=== PATIENT | male | born 1960 | race Caucasian/White ===

== ENCOUNTER 2019-01-04 04:59 | Inpatient (IN) | payer OTHER ==
[~2019-01-04] VITALS: Ht 124.5 cm; Wt 60.5 kg
[~2019-01-04 04:59] MED LIST: BP MEDS
[2019-01-04] MEDS ORDERED: LOSA50TA64 PO (05:16)
[2019-01-04] MEDS ORDERED: ASPI-1182 PO (05:16)
[2019-01-04] MEDS ORDERED: MELO-107 PO (05:16)
[2019-01-04 05:29] LABS: BASOPHILS % (AUTO) 0.6 % (0.0-2.0); EOSINOPHILS % (AUTO) 0.5 % (1.0-6.0); HEMATOCRIT 38.5 % (41-53); HEMOGLOBIN 12.6 g/dL (13.5-17.5); LYMPHOCYTES # (AUTO) 1.3 K/uL (1.0-4.8); LYMPHOCYTES % (AUTO) 9.7 % (22.0-44.0); MEAN CORPUSCULAR HEMOGLOBIN 31.7 pg (26.0-34.0); MEAN CORPUSCULAR HGB CONC 32.7 G/dL (31.0-37.0); MEAN CORPUSCULAR VOLUME 97 fL (80-100); MONOCYTES % (AUTO) 7.5 % (2.0-9.0); NEUTROPHILS # (AUTO) 10.7 K/uL (1.8-7.7); NEUTROPHILS % (AUTO) 81.7 % (40.0-70.0); PLATELET COUNT (AUTO) 274 K/uL (150-450); RED BLOOD CELL COUNT(AUTO) 3.97 MIL/uL (4.50-5.90); RED CELL DISTRIBUTION WIDTH 17.2 % (11.5-14.5)
[2019-01-04] MEDS ORDERED: ASPIRIN 81 MG CHEWABLE TABLET PO ONE (05:30)
[2019-01-04] MEDS ORDERED: NITROGLYCERIN 2% (1 GM=INCH) PACKET TP ONE (05:30)
[2019-01-04 05:39] LABS: ANION GAP 12 mmol/L (8-16); CALCIUM, TOTAL 9.5 mg/dL (8.8-10.5); CARBON DIOXIDE 27 mmol/L (22-29); CHLORIDE 97 mmol/L (98-107); CREATININE 0.47 mg/dL (0.60-1.30); GLOMERULAR FILTR. RATE CALC > 60 mL/min (>60); GLUCOSE,RANDOM 143 mg/dL (70-110); POTASSIUM 5.1 mmol/L (3.5-5.1); SODIUM SERUM 136 mmol/L (136-145); UREA NITROGEN, BLOOD 21 mg/dL (7-18)
[2019-01-04 05:45] LABS: ALANINE AMINOTRANSFERASE 29 U/L (12-78); ALBUMIN 3.6 g/dL (3.4-5.0); ALKALINE PHOSPHATASE 81 U/L (46-116); ASPARTATE AMINOTRANSFERASE 41 U/L (15-37); BILIRUBIN,TOTAL 0.5 mg/dL (0.1-1.0); LIPASE 197 U/L (73-393)
[2019-01-04] MEDS ORDERED: ACETAMINOPHEN 325 MG TABLET PO ONE (05:45)
[2019-01-04 05:52] LABS: B-TYPE NATRIURETIC PEPTIDE 44 pg/mL (0-100)
[2019-01-04] MEDS ORDERED: SODIUM CHLORIDE 0.9% 1,000 ML IV ONE ×3 (06:00→11:00)
[2019-01-04] MEDS ORDERED: MORPHINE SULFATE 4 MG/ML SYRINGE IVP ONE ×2 (06:15→08:00)
[2019-01-04] MEDS ORDERED: SODIUM CHLORIDE 0.9% 100 ML ONE (06:19)
[2019-01-04] MEDS ORDERED: IOVERSOL 350 MG/ML 100 ML VIAL ONE (06:19)
[2019-01-04] MEDS ORDERED: CefTRIAXone 1 GM/DEXTROSE 50 ML IV ONE (07:30)
[2019-01-04 07:35] LABS: APPEARANCE,URINE CLOUDY (CLEAR); BILIRUBIN,URINE NEGATIVE (NEGATIVE); GLUCOSE, URINE (UA) NEGATIVE (NEGATIVE); KETONES,URINE >=80 mg/dL (NEGATIVE); LEUKOCYTE ESTERASE ,URINE LARGE (NEGATIVE); NITRATE,URINE POSITIVE (NEGATIVE); OCCULT BLOOD,URINE LARGE (NEGATIVE); PH,URINE 5.5 (5.0-8.0); PROTEIN,URINE TRACE (NEGATIVE); UROBILINOGEN,URINE 0.2 mg/dL (<=1.0)
[2019-01-04] MEDS ORDERED: LOSARTAN POTASSIUM 50 MG TABLET PO ONE (08:00)
[2019-01-04] MEDS ORDERED: CIPROFLOXACIN 400 MG/D5% WATER 200 ML IV ONE (08:00)
[2019-01-04] MEDS ORDERED: MetroNIDAZOLE 500 MG/NACL 100 ML IV ONE (08:00)
[2019-01-04 08:06] LABS: BACTERIA,URINE Moderate /HPF (None Seen); SQUAMOUS EPITHELIAL CELL,UR Few /LPF (None Seen); WBC,URINE 26-50 /HPF (0-5)
[2019-01-04] MEDS ORDERED: MORPHINE SULFATE 4 MG/ML SYRINGE IVP PRN (08:15)
[2019-01-04] MEDS ORDERED: 0.9% SODIUM CHLORIDE 10 ML SYRINGE IVP PRN (08:15)
[2019-01-04] MEDS ORDERED: ACETAMINOPHEN 325 MG TABLET PO PRN (08:15)
[2019-01-04] MEDS ORDERED: ONDANSETRON HCL 4 MG/2 ML VIAL IVP PRN ×2 (08:15→11:00)
[2019-01-04 08:19] LABS: INFLUENZA TYPE A NEGATIVE FOR TYPE A (NEGATIVE); INFLUENZA TYPE B NEGATIVE FOR TYPE B (NEGATIVE)
[2019-01-04] MEDS ORDERED: CloNIDine HCL 0.1 MG TABLET PO PRN (11:00)
[2019-01-04] MEDS: MetroNIDAZOLE 500 MG/NACL 100 ML IV SCH ×2 (11:05→21:39)
[2019-01-04] MEDS: CIPROFLOXACIN 400 MG/D5% WATER 200 ML IV SCH ×2 (11:06→23:52)
[2019-01-04 12:52] VITALS: BP 186/117
[2019-01-04] MEDS: MORPHINE SULFATE 2 MG/ML SYRINGE IVP PRN (13:10)
[2019-01-04 15:55] VITALS: BP 168/92
[2019-01-04] MEDS: HEPARIN SODIUM,PORCINE 5,000 UNITS/ML VIAL SQ SCH ×2 (16:57→23:52)
[2019-01-04] MEDS ORDERED: PNEUMOCOCCAL VACCINE POLYVALENT 0.5 ML VIAL [PPSV23] IM ONE (18:45)
[2019-01-04 19:55] VITALS: BP 154/88
[2019-01-04] MEDS: DOCUSATE SODIUM 100 MG CAPSULE PO SCH (20:05)
[2019-01-04] MEDS: ACETAMINOPHEN 325 MG TABLET PO PRN (20:05)
[2019-01-04 23:23] VITALS: BP 122/70
[2019-01-05] MEDS ORDERED: SODIUM CHLORIDE 0.9% 500 ML IV ONE (00:28)
[2019-01-05] MEDS: MORPHINE SULFATE 2 MG/ML SYRINGE IVP PRN ×3 (04:13→21:42)
[2019-01-05] MEDS: MetroNIDAZOLE 500 MG/NACL 100 ML IV SCH ×3 (04:14→20:00)
[2019-01-05 04:37] VITALS: BP 129/80
[2019-01-05 06:01] LABS: BASOPHILS % (AUTO) 0.2 % (0.0-2.0); EOSINOPHILS % (AUTO) 0 % (1.0-6.0); HEMATOCRIT 33.1 % (41-53); HEMOGLOBIN 10.8 g/dL (13.5-17.5); LYMPHOCYTES # (AUTO) 0.3 K/uL (1.0-4.8); LYMPHOCYTES % (AUTO) 2.2 % (22.0-44.0); MEAN CORPUSCULAR HEMOGLOBIN 31.3 pg (26.0-34.0); MEAN CORPUSCULAR HGB CONC 32.6 G/dL (31.0-37.0); MEAN CORPUSCULAR VOLUME 96 fL (80-100); MONOCYTES # (AUTO) 0.7 K/uL (0.1-1.0); MONOCYTES % (AUTO) 5.5 % (2.0-9.0); NEUTROPHILS # (AUTO) 12.5 K/uL (1.8-7.7); PLATELET COUNT (AUTO) 178 K/uL (150-450); RED BLOOD CELL COUNT(AUTO) 3.45 MIL/uL (4.50-5.90); RED CELL DISTRIBUTION WIDTH 17.4 % (11.5-14.5)
[2019-01-05 06:09] LABS: NEUTROPHILS % (AUTO) 92.1 % (40.0-70.0)
[2019-01-05 06:17] LABS: ALANINE AMINOTRANSFERASE 162 U/L (12-78); ALBUMIN 2.6 g/dL (3.4-5.0); ALKALINE PHOSPHATASE 149 U/L (46-116); ANION GAP 11 mmol/L (8-16); ASPARTATE AMINOTRANSFERASE 134 U/L (15-37); BILIRUBIN,TOTAL 0.4 mg/dL (0.1-1.0); CARBON DIOXIDE 26 mmol/L (22-29); CHLORIDE 100 mmol/L (98-107); CREATININE 0.47 mg/dL (0.60-1.30); GLOMERULAR FILTR. RATE CALC > 60 mL/min (>60); GLUCOSE,RANDOM 118 mg/dL (70-110); POTASSIUM 3.1 mmol/L (3.5-5.1); SODIUM SERUM 137 mmol/L (136-145); TOTAL PROTEIN, SERUM 6.8 g/dL (6.4-8.2); UREA NITROGEN, BLOOD 14 mg/dL (7-18)
[2019-01-05 07:35] VITALS: BP 125/78
[2019-01-05] MEDS: POTASSIUM CHL 10 MEQ/WATER 50 ML IV PRN ×3 (08:43→16:52)
[2019-01-05] MEDS: HEPARIN SODIUM,PORCINE 5,000 UNITS/ML VIAL SQ SCH ×2 (08:44→16:52)
[2019-01-05] MEDS: DEXTROSE 5%-0.45% SODIUM CHL 1,000 ML IV SCH (08:44)
[2019-01-05] MEDS: ASPIRIN 81 MG EC TABLET PO SCH (08:44)
[2019-01-05] MEDS: LOSARTAN POTASSIUM 50 MG TABLET PO SCH (08:44)
[2019-01-05] MEDS: PANTOPRAZOLE SODIUM 40 MG DR TABLET PO SCH (08:44)
[2019-01-05] MEDS: DOCUSATE SODIUM 100 MG CAPSULE PO SCH ×2 (08:45→20:00)
[2019-01-05] MEDS: CIPROFLOXACIN 400 MG/D5% WATER 200 ML IV SCH (11:02)
[2019-01-05] MEDS: ACETAMINOPHEN 325 MG TABLET PO PRN (11:16)
[2019-01-05 11:25] VITALS: BP 116/78
[2019-01-05] MEDS: CefTRIAXone 1 GM/DEXTROSE 50 ML IV SCH (13:04)
[2019-01-05 15:20] VITALS: BP 120/59
[2019-01-05 20:06] VITALS: BP 120/69
[2019-01-05 23:24] VITALS: BP 104/59
[2019-01-06] MEDS: HEPARIN SODIUM,PORCINE 5,000 UNITS/ML VIAL SQ SCH ×4 (00:04→23:24)
[2019-01-06] MEDS: CIPROFLOXACIN 400 MG/D5% WATER 200 ML IV SCH ×3 (00:04→23:24)
[2019-01-06] MEDS: DEXTROSE 5%-0.45% SODIUM CHL 1,000 ML IV SCH ×2 (00:05→15:54)
[2019-01-06] MEDS: POTASSIUM CHLORIDE 20 MEQ ER TABLET PO PRN (02:55)
[2019-01-06] MEDS: MetroNIDAZOLE 500 MG/NACL 100 ML IV SCH ×3 (04:02→20:22)
[2019-01-06 04:33] VITALS: BP 101/64
[2019-01-06 07:44] VITALS: BP 108/64
[2019-01-06] MEDS: LOSARTAN POTASSIUM 50 MG TABLET PO SCH (08:47)
[2019-01-06] MEDS: DOCUSATE SODIUM 100 MG CAPSULE PO SCH ×2 (08:47→20:22)
[2019-01-06] MEDS: PANTOPRAZOLE SODIUM 40 MG DR TABLET PO SCH (08:47)
[2019-01-06] MEDS: ASPIRIN 81 MG EC TABLET PO SCH (08:47)
[2019-01-06] MEDS ORDERED: SODIUM CHLORIDE 0.9% 100 ML ONE (11:08)
[2019-01-06] MEDS: HYDROCODONE/ACETAMINOPHEN 5-325 MG TABLET PO PRN (11:28)
[2019-01-06 12:28] VITALS: BP 106/51
[2019-01-06] MEDS: CefTRIAXone 1 GM/DEXTROSE 50 ML IV SCH (12:33)
[2019-01-06 15:49] VITALS: BP 107/72
[2019-01-06 19:51] VITALS: BP 115/74
[2019-01-06] MEDS: MORPHINE SULFATE 2 MG/ML SYRINGE IVP PRN (21:29)
[2019-01-06 23:36] VITALS: BP 132/75
[2019-01-07] MEDS: MetroNIDAZOLE 500 MG/NACL 100 ML IV SCH ×2 (04:10→13:01)
[2019-01-07] MEDS: DEXTROSE 5%-0.45% SODIUM CHL 1,000 ML IV SCH ×2 (04:18→16:20)
[2019-01-07 04:25] VITALS: BP 124/76
[2019-01-07 06:11] LABS: BASOPHILS % (AUTO) 0.2 % (0.0-2.0); EOSINOPHILS % (AUTO) 1.3 % (1.0-6.0); HEMATOCRIT 31.4 % (41-53); HEMOGLOBIN 10.4 g/dL (13.5-17.5); LYMPHOCYTES # (AUTO) 0.7 K/uL (1.0-4.8); LYMPHOCYTES % (AUTO) 7.8 % (22.0-44.0); MEAN CORPUSCULAR HGB CONC 33.2 G/dL (31.0-37.0); MEAN CORPUSCULAR VOLUME 96 fL (80-100); MONOCYTES % (AUTO) 11.5 % (2.0-9.0); NEUTROPHILS # (AUTO) 6.7 K/uL (1.8-7.7); NEUTROPHILS % (AUTO) 79.2 % (40.0-70.0); PLATELET COUNT (AUTO) 162 K/uL (150-450); RED BLOOD CELL COUNT(AUTO) 3.26 MIL/uL (4.50-5.90); RED CELL DISTRIBUTION WIDTH 17.7 % (11.5-14.5)
[2019-01-07 06:31] LABS: ANION GAP 7 mmol/L (8-16); CALCIUM, TOTAL 7.3 mg/dL (8.8-10.5); CARBON DIOXIDE 28 mmol/L (22-29); CHLORIDE 102 mmol/L (98-107); CREATININE 0.47 mg/dL (0.60-1.30); GLOMERULAR FILTR. RATE CALC > 60 mL/min (>60); GLUCOSE,RANDOM 169 mg/dL (70-110); POTASSIUM 3.4 mmol/L (3.5-5.1); SODIUM SERUM 137 mmol/L (136-145); UREA NITROGEN, BLOOD 11 mg/dL (7-18)
[2019-01-07] MEDS: POTASSIUM CHLORIDE 20 MEQ ER TABLET PO PRN (07:01)
[2019-01-07 08:19] VITALS: BP 137/85
[2019-01-07] MEDS: MORPHINE SULFATE 2 MG/ML SYRINGE IVP PRN ×3 (08:44→21:47)
[2019-01-07] MEDS: MAGNESIUM HYDROXIDE SUSPENSION 30 ML UDCUP PO PRN (08:47)
[2019-01-07] MEDS: ASPIRIN 81 MG EC TABLET PO SCH (08:48)
[2019-01-07] MEDS: PANTOPRAZOLE SODIUM 40 MG DR TABLET PO SCH (08:48)
[2019-01-07] MEDS: HEPARIN SODIUM,PORCINE 5,000 UNITS/ML VIAL SQ SCH ×3 (08:48→23:43)
[2019-01-07] MEDS: DOCUSATE SODIUM 100 MG CAPSULE PO SCH ×2 (08:48→20:59)
[2019-01-07] MEDS: LOSARTAN POTASSIUM 50 MG TABLET PO SCH (08:48)
[2019-01-07] MEDS: CIPROFLOXACIN 400 MG/D5% WATER 200 ML IV SCH ×2 (11:12→23:43)
[2019-01-07 12:34] VITALS: BP 122/65
[2019-01-07] MEDS: CefTRIAXone 1 GM/DEXTROSE 50 ML IV SCH (13:01)
[2019-01-07] MEDS ORDERED: LORATADINE 10 MG TABLET PO SCH (14:00)
[2019-01-07 16:27] VITALS: BP 110/68
[2019-01-07 20:04] VITALS: BP 149/90
[2019-01-08 00:27] VITALS: BP 137/82
[2019-01-08 04:11] VITALS: BP 123/75
[2019-01-08] MEDS: DEXTROSE 5%-0.45% SODIUM CHL 1,000 ML IV SCH ×2 (06:43→20:59)
[2019-01-08 07:54] VITALS: BP 130/81
[2019-01-08] MEDS ORDERED: GADOBUTROL 1 MMOL/ML 10 ML VIAL IVP ONE (08:46)
[2019-01-08] MEDS: ASPIRIN 81 MG EC TABLET PO SCH (09:42)
[2019-01-08] MEDS: PANTOPRAZOLE SODIUM 40 MG DR TABLET PO SCH (09:42)
[2019-01-08] MEDS: DOCUSATE SODIUM 100 MG CAPSULE PO SCH ×2 (09:42→20:59)
[2019-01-08] MEDS: LOSARTAN POTASSIUM 50 MG TABLET PO SCH (09:43)
[2019-01-08] MEDS: HEPARIN SODIUM,PORCINE 5,000 UNITS/ML VIAL SQ SCH ×3 (09:43→23:41)
[2019-01-08] MEDS: MAGNESIUM HYDROXIDE SUSPENSION 30 ML UDCUP PO PRN (10:05)
[2019-01-08] MEDS: BISACODYL 10 MG RECTAL RECTAL SUPPOSITORY PR PRN (10:05)
[2019-01-08 11:49] VITALS: BP 137/71
[2019-01-08] MEDS: CIPROFLOXACIN 400 MG/D5% WATER 200 ML IV SCH ×2 (11:51→23:41)
[2019-01-08 20:15] VITALS: BP 159/94
[2019-01-09] VITALS (7 sets, daily range): BP systolic 123–159; BP diastolic 78–89
[2019-01-09] MEDS: MORPHINE SULFATE 2 MG/ML SYRINGE IVP PRN (01:09)
[2019-01-09] MEDS: HEPARIN SODIUM,PORCINE 5,000 UNITS/ML VIAL SQ SCH ×3 (09:13→21:15)
[2019-01-09] MEDS: PANTOPRAZOLE SODIUM 40 MG DR TABLET PO SCH (09:13)
[2019-01-09] MEDS: DOCUSATE SODIUM 100 MG CAPSULE PO SCH ×2 (09:13→21:15)
[2019-01-09] MEDS: ASPIRIN 81 MG EC TABLET PO SCH (09:13)
[2019-01-09] MEDS: LOSARTAN POTASSIUM 50 MG TABLET PO SCH (09:13)
[2019-01-09] MEDS: CIPROFLOXACIN 400 MG/D5% WATER 200 ML IV SCH (10:06)
[2019-01-09 13:22] LABS: C-REACTIVE PROTEIN QUANT 7.82 mg/dL (0.00-0.30)
[2019-01-09] MEDS: DEXTROSE 5%-0.45% SODIUM CHL 1,000 ML IV SCH (13:43)
[2019-01-09] MEDS ORDERED: CefTRIAXone SODIUM 2 GM in DEXTROSE 5%-WATER 50 ML IV SCH (14:00)
[2019-01-09] MEDS: DiphenhydrAMINE HCL 25 MG CAPSULE PO PRN (22:44)
[2019-01-10] MEDS: MORPHINE SULFATE 2 MG/ML SYRINGE IVP PRN ×2 (00:33→22:53)
[2019-01-10] MEDS: DEXTROSE 5%-0.45% SODIUM CHL 1,000 ML IV SCH ×2 (01:16→15:40)
[2019-01-10] MEDS: AZTREONAM 2 GM in DEXTROSE 5%-WATER 50 ML IV SCH ×3 (01:16→18:02)
[2019-01-10 04:31] VITALS: BP 133/98
[2019-01-10 07:33] VITALS: BP 130/77
[2019-01-10] MEDS: HEPARIN SODIUM,PORCINE 5,000 UNITS/ML VIAL SQ SCH ×3 (08:00→21:33)
[2019-01-10] MEDS: PANTOPRAZOLE SODIUM 40 MG DR TABLET PO SCH (09:05)
[2019-01-10] MEDS: LOSARTAN POTASSIUM 50 MG TABLET PO SCH (09:05)
[2019-01-10] MEDS: ASPIRIN 81 MG EC TABLET PO SCH (09:05)
[2019-01-10] MEDS: DOCUSATE SODIUM 100 MG CAPSULE PO SCH ×2 (09:05→21:33)
[2019-01-10 10:09] LABS: BASOPHILS % (AUTO) 0.5 % (0.0-2.0); EOSINOPHILS % (AUTO) 3.7 % (1.0-6.0); HEMATOCRIT 36.4 % (41-53); HEMOGLOBIN 11.7 g/dL (13.5-17.5); LYMPHOCYTES % (AUTO) 12.3 % (22.0-44.0); MEAN CORPUSCULAR HGB CONC 32.3 G/dL (31.0-37.0); MEAN CORPUSCULAR VOLUME 96 fL (80-100); MONOCYTES # (AUTO) 0.9 K/uL (0.1-1.0); NEUTROPHILS # (AUTO) 5.8 K/uL (1.8-7.7); NEUTROPHILS % (AUTO) 72.5 % (40.0-70.0); PLATELET COUNT (AUTO) 317 K/uL (150-450); RED BLOOD CELL COUNT(AUTO) 3.79 MIL/uL (4.50-5.90); RED CELL DISTRIBUTION WIDTH 17.3 % (11.5-14.5)
[2019-01-10 11:43] LABS: ALANINE AMINOTRANSFERASE 27 U/L (12-78); ALBUMIN 2.4 g/dL (3.4-5.0); ALKALINE PHOSPHATASE 74 U/L (46-116); ANION GAP 5 mmol/L (8-16); ASPARTATE AMINOTRANSFERASE 16 U/L (15-37); BILIRUBIN,TOTAL 0.2 mg/dL (0.1-1.0); CALCIUM, TOTAL 8.4 mg/dL (8.8-10.5); CARBON DIOXIDE 36 mmol/L (22-29); CHLORIDE 100 mmol/L (98-107); CREATININE 0.46 mg/dL (0.60-1.30); GLOMERULAR FILTR. RATE CALC > 60 mL/min (>60); GLUCOSE,RANDOM 132 mg/dL (70-110); POTASSIUM 3.4 mmol/L (3.5-5.1); SODIUM SERUM 141 mmol/L (136-145); TOTAL PROTEIN, SERUM 6.4 g/dL (6.4-8.2); UREA NITROGEN, BLOOD 3 mg/dL (7-18)
[2019-01-10 11:47] LABS: ERYTHROCYTE SEDIMENTATION RATE 70 MM/HR (0-15)
[2019-01-10 11:57] VITALS: BP 137/74
[2019-01-10] MEDS: POTASSIUM CHLORIDE 20 MEQ ER TABLET PO PRN (12:06)
[2019-01-10 16:00] VITALS: BP 150/89
[2019-01-10] MEDS: DiphenhydrAMINE HCL 25 MG CAPSULE PO PRN (17:01)
[2019-01-10] MEDS ORDERED: SODIUM CHLORIDE 0.9% 100 ML ONE (17:51)
[2019-01-10] MEDS: POTASSIUM CHL 10 MEQ/WATER 50 ML IV PRN ×3 (18:03→22:53)
[2019-01-10 19:14] VITALS: BP 141/83
[2019-01-11] VITALS (7 sets, daily range): BP systolic 122–148; BP diastolic 64–98
[2019-01-11] MEDS: POTASSIUM CHL 10 MEQ/WATER 50 ML IV PRN (00:28)
[2019-01-11] MEDS: ZOLPIDEM TARTRATE 5 MG TABLET PO PRN (01:16)
[2019-01-11] MEDS: AZTREONAM 2 GM in DEXTROSE 5%-WATER 50 ML IV SCH ×3 (02:41→18:28)
[2019-01-11] MEDS: DiphenhydrAMINE HCL 25 MG CAPSULE PO PRN ×2 (04:17→20:54)
[2019-01-11] MEDS: DEXTROSE 5%-0.45% SODIUM CHL 1,000 ML IV SCH ×2 (06:42→20:55)
[2019-01-11] MEDS: DOCUSATE SODIUM 100 MG CAPSULE PO SCH ×2 (09:00→20:55)
[2019-01-11] MEDS: LOSARTAN POTASSIUM 50 MG TABLET PO SCH (09:29)
[2019-01-11] MEDS: PANTOPRAZOLE SODIUM 40 MG DR TABLET PO SCH (09:29)
[2019-01-11] MEDS: HEPARIN SODIUM,PORCINE 5,000 UNITS/ML VIAL SQ SCH ×3 (09:29→23:57)
[2019-01-11] MEDS: ASPIRIN 81 MG EC TABLET PO SCH (09:29)
[2019-01-11] MEDS ORDERED: BISACODYL 10 MG RECTAL RECTAL SUPPOSITORY PR ONE (13:15)
[2019-01-12] MEDS: ZOLPIDEM TARTRATE 5 MG TABLET PO PRN ×2 (01:56→23:37)
[2019-01-12] MEDS: AZTREONAM 2 GM in DEXTROSE 5%-WATER 50 ML IV SCH ×2 (01:57→09:41)
[2019-01-12 04:13] VITALS: BP 146/78
[2019-01-12 07:25] VITALS: BP 149/85
[2019-01-12] MEDS: HEPARIN SODIUM,PORCINE 5,000 UNITS/ML VIAL SQ SCH (08:00)
[2019-01-12] MEDS: ASPIRIN 81 MG EC TABLET PO SCH (09:39)
[2019-01-12] MEDS: LOSARTAN POTASSIUM 50 MG TABLET PO SCH (09:39)
[2019-01-12] MEDS: PANTOPRAZOLE SODIUM 40 MG DR TABLET PO SCH (09:39)
[2019-01-12] MEDS: DOCUSATE SODIUM 100 MG CAPSULE PO SCH ×2 (09:39→20:22)
[2019-01-12 11:38] VITALS: BP 126/86
[2019-01-12] MEDS: DEXTROSE 5%-0.45% SODIUM CHL 1,000 ML IV SCH (11:55)
[2019-01-12 15:51] VITALS: BP 145/84
[2019-01-12] MEDS: BISACODYL 10 MG RECTAL RECTAL SUPPOSITORY PR PRN (18:48)
[2019-01-12 19:13] VITALS: BP 166/88
[2019-01-12] MEDS: LEVOFLOXACIN 750 MG/D5% WATER 150 ML IV SCH (20:22)
[2019-01-12] MEDS: DiphenhydrAMINE HCL 25 MG CAPSULE PO PRN (20:22)
[2019-01-12 20:24] VITALS: BP 148/94
[2019-01-13 00:06] VITALS: BP 145/65
[2019-01-13] MEDS: DEXTROSE 5%-0.45% SODIUM CHL 1,000 ML IV SCH ×2 (01:13→15:38)
[2019-01-13 04:20] VITALS: BP 146/94
[2019-01-13 08:21] VITALS: BP 165/96
[2019-01-13] MEDS ORDERED: LACTULOSE 20 GM/30 ML SOLUTION UDCUP PO ONE (09:15)
[2019-01-13] MEDS: PANTOPRAZOLE SODIUM 40 MG DR TABLET PO SCH (09:26)
[2019-01-13] MEDS: ASPIRIN 81 MG EC TABLET PO SCH (09:26)
[2019-01-13] MEDS: DOCUSATE SODIUM 100 MG CAPSULE PO SCH ×2 (09:26→20:37)
[2019-01-13] MEDS: LOSARTAN POTASSIUM 50 MG TABLET PO SCH (09:26)
[2019-01-13] MEDS: BISACODYL 10 MG RECTAL RECTAL SUPPOSITORY PR PRN (09:27)
[2019-01-13 11:08] LABS: QUANTIFERON+, Nil Value 0.07 IU/mL; QUANTIFERON+,Mitogen Value 0.77 IU/mL; QUANTIFERON+,TB1 Antigen Value 0.08 IU/mL; QUANTIFERON+,TB2 Antigen Value 0.09 IU/mL; QUANTIFERON, TB GOLD PLUS Negative (Negative)
[2019-01-13] MEDS ORDERED: ONDANSETRON HCL 4 MG/2 ML VIAL IVP PRN (11:15)
[2019-01-13 12:14] VITALS: BP 152/43
[2019-01-13 15:54] VITALS: BP 133/82
[2019-01-13] MEDS: LEVOFLOXACIN 750 MG/D5% WATER 150 ML IV SCH (17:24)
[2019-01-13 19:22] VITALS: BP 110/65
[2019-01-14 00:13] VITALS: BP 145/87
[2019-01-14 05:55] VITALS: BP 150/80
[2019-01-14] MEDS: DEXTROSE 5%-0.45% SODIUM CHL 1,000 ML IV SCH ×2 (06:42→21:58)
[2019-01-14 08:34] VITALS: BP 132/72
[2019-01-14] MEDS: DOCUSATE SODIUM 100 MG CAPSULE PO SCH ×2 (08:50→21:00)
[2019-01-14] MEDS: LOSARTAN POTASSIUM 50 MG TABLET PO SCH (08:50)
[2019-01-14] MEDS: PANTOPRAZOLE SODIUM 40 MG DR TABLET PO SCH (08:50)
[2019-01-14] MEDS: ASPIRIN 81 MG EC TABLET PO SCH (08:50)
[2019-01-14 12:11] VITALS: BP 137/69
[2019-01-14 15:10] VITALS: BP 138/79
[2019-01-14 15:35] LABS: BASOPHILS % (AUTO) 0.8 % (0.0-2.0); EOSINOPHILS % (AUTO) 2.8 % (1.0-6.0); HEMATOCRIT 36.4 % (41-53); HEMOGLOBIN 12.2 g/dL (13.5-17.5); LYMPHOCYTES # (AUTO) 0.9 K/uL (1.0-4.8); LYMPHOCYTES % (AUTO) 8.7 % (22.0-44.0); MEAN CORPUSCULAR HEMOGLOBIN 31.1 pg (26.0-34.0); MEAN CORPUSCULAR HGB CONC 33.4 G/dL (31.0-37.0); MEAN CORPUSCULAR VOLUME 93 fL (80-100); MONOCYTES # (AUTO) 0.7 K/uL (0.1-1.0); MONOCYTES % (AUTO) 7.3 % (2.0-9.0); NEUTROPHILS # (AUTO) 7.9 K/uL (1.8-7.7); NEUTROPHILS % (AUTO) 80.4 % (40.0-70.0); PLATELET COUNT (AUTO) 581 K/uL (150-450); RED BLOOD CELL COUNT(AUTO) 3.91 MIL/uL (4.50-5.90); RED CELL DISTRIBUTION WIDTH 17.7 % (11.5-14.5)
[2019-01-14 15:41] LABS: ANION GAP 2 mmol/L (8-16); CALCIUM, TOTAL 8.4 mg/dL (8.8-10.5); CARBON DIOXIDE 36 mmol/L (22-29); CHLORIDE 95 mmol/L (98-107); CREATININE 0.46 mg/dL (0.60-1.30); GLOMERULAR FILTR. RATE CALC > 60 mL/min (>60); GLUCOSE,RANDOM 132 mg/dL (70-110); POTASSIUM 3.5 mmol/L (3.5-5.1); SODIUM SERUM 133 mmol/L (136-145); UREA NITROGEN, BLOOD 14 mg/dL (7-18)
[2019-01-14 15:48] LABS: ALANINE AMINOTRANSFERASE 62 U/L (12-78); ALBUMIN 2.5 g/dL (3.4-5.0); ALKALINE PHOSPHATASE 67 U/L (46-116); ASPARTATE AMINOTRANSFERASE 47 U/L (15-37); BILIRUBIN,TOTAL 0.2 mg/dL (0.1-1.0); TOTAL PROTEIN, SERUM 6.5 g/dL (6.4-8.2)
[2019-01-14] MEDS: POTASSIUM CHL 10 MEQ/WATER 50 ML IV PRN ×3 (16:07→20:29)
[2019-01-14] MEDS: LEVOFLOXACIN 750 MG/D5% WATER 150 ML IV SCH (18:05)
[2019-01-14 20:06] VITALS: BP 126/79
[2019-01-15 00:29] VITALS: BP 136/84
[2019-01-15] MEDS: MORPHINE SULFATE 2 MG/ML SYRINGE IVP PRN (02:26)
[2019-01-15 04:45] VITALS: BP 146/82
[2019-01-15 06:19] LABS: BASOPHILS % (AUTO) 0.3 % (0.0-2.0); EOSINOPHILS % (AUTO) 2.4 % (1.0-6.0); HEMATOCRIT 36.7 % (41-53); HEMOGLOBIN 12.3 g/dL (13.5-17.5); LYMPHOCYTES % (AUTO) 8.9 % (22.0-44.0); MEAN CORPUSCULAR HEMOGLOBIN 31.7 pg (26.0-34.0); MEAN CORPUSCULAR HGB CONC 33.4 G/dL (31.0-37.0); MEAN CORPUSCULAR VOLUME 95 fL (80-100); MONOCYTES # (AUTO) 0.7 K/uL (0.1-1.0); MONOCYTES % (AUTO) 6.3 % (2.0-9.0); NEUTROPHILS # (AUTO) 8.9 K/uL (1.8-7.7); NEUTROPHILS % (AUTO) 82.1 % (40.0-70.0); PLATELET COUNT (AUTO) 592 K/uL (150-450); RED BLOOD CELL COUNT(AUTO) 3.87 MIL/uL (4.50-5.90)
[2019-01-15 06:35] LABS: ALANINE AMINOTRANSFERASE 70 U/L (12-78); ALBUMIN 2.5 g/dL (3.4-5.0); ALKALINE PHOSPHATASE 67 U/L (46-116); ANION GAP 5 mmol/L (8-16); ASPARTATE AMINOTRANSFERASE 50 U/L (15-37); BILIRUBIN,TOTAL 0.2 mg/dL (0.1-1.0); CALCIUM, TOTAL 8.7 mg/dL (8.8-10.5); CARBON DIOXIDE 32 mmol/L (22-29); CHLORIDE 95 mmol/L (98-107); CREATININE 0.45 mg/dL (0.60-1.30); GLOMERULAR FILTR. RATE CALC > 60 mL/min (>60); GLUCOSE,RANDOM 127 mg/dL (70-110); POTASSIUM 3.9 mmol/L (3.5-5.1); SODIUM SERUM 132 mmol/L (136-145); TOTAL PROTEIN, SERUM 6.8 g/dL (6.4-8.2); UREA NITROGEN, BLOOD 11 mg/dL (7-18)
[2019-01-15 07:34] VITALS: BP 152/92
[2019-01-15] MEDS: DOCUSATE SODIUM 100 MG CAPSULE PO SCH ×2 (09:08→20:59)
[2019-01-15] MEDS: PANTOPRAZOLE SODIUM 40 MG DR TABLET PO SCH (09:09)
[2019-01-15] MEDS: ASPIRIN 81 MG EC TABLET PO SCH (09:09)
[2019-01-15] MEDS: LOSARTAN POTASSIUM 50 MG TABLET PO SCH (09:09)
[2019-01-15 11:03] VITALS: BP 145/84
[2019-01-15] MEDS: DEXTROSE 5%-0.45% SODIUM CHL 1,000 ML IV SCH (13:05)
[2019-01-15] MEDS ORDERED: BARIUM SULFATE 0.1% SUSPENSION 450 ML BOTTLE ONE (14:28)
[2019-01-15 15:31] VITALS: BP 135/87
[2019-01-15] MEDS: LEVOFLOXACIN 750 MG/D5% WATER 150 ML IV SCH (17:09)
[2019-01-15] MEDS ORDERED: SODIUM CHLORIDE 0.9% 100 ML ONE (18:51)
[2019-01-15] MEDS ORDERED: IOVERSOL 320 MG/ML 100 ML VIAL ONE (18:51)
[2019-01-15 19:41] VITALS: BP 140/86
[2019-01-16 00:36] VITALS: BP 126/79
[2019-01-16 04:00] VITALS: BP 143/79
[2019-01-16] MEDS: MORPHINE SULFATE 2 MG/ML SYRINGE IVP PRN ×2 (04:09→21:19)
[2019-01-16] MEDS: DEXTROSE 5%-0.45% SODIUM CHL 1,000 ML IV SCH (04:12)
[2019-01-16 07:22] VITALS: BP 147/93
[2019-01-16 08:04] LABS: BASOPHILS % (AUTO) 0.6 % (0.0-2.0); HEMATOCRIT 37.1 % (41-53); HEMOGLOBIN 12.1 g/dL (13.5-17.5); LYMPHOCYTES # (AUTO) 0.9 K/uL (1.0-4.8); LYMPHOCYTES % (AUTO) 8.1 % (22.0-44.0); MEAN CORPUSCULAR HEMOGLOBIN 30.9 pg (26.0-34.0); MEAN CORPUSCULAR HGB CONC 32.6 G/dL (31.0-37.0); MEAN CORPUSCULAR VOLUME 95 fL (80-100); MONOCYTES # (AUTO) 0.8 K/uL (0.1-1.0); MONOCYTES % (AUTO) 6.9 % (2.0-9.0); NEUTROPHILS # (AUTO) 9.2 K/uL (1.8-7.7); NEUTROPHILS % (AUTO) 82.4 % (40.0-70.0); PLATELET COUNT (AUTO) 594 K/uL (150-450); RED CELL DISTRIBUTION WIDTH 17.6 % (11.5-14.5)
[2019-01-16 08:19] LABS: ALANINE AMINOTRANSFERASE 81 U/L (12-78); ALBUMIN 2.6 g/dL (3.4-5.0); ALKALINE PHOSPHATASE 69 U/L (46-116); ANION GAP 4 mmol/L (8-16); ASPARTATE AMINOTRANSFERASE 60 U/L (15-37); BILIRUBIN,TOTAL 0.2 mg/dL (0.1-1.0); CALCIUM, TOTAL 8.5 mg/dL (8.8-10.5); CARBON DIOXIDE 35 mmol/L (22-29); CHLORIDE 98 mmol/L (98-107); CREATININE 0.42 mg/dL (0.60-1.30); GLOMERULAR FILTR. RATE CALC > 60 mL/min (>60); GLUCOSE,RANDOM 116 mg/dL (70-110); POTASSIUM 3.6 mmol/L (3.5-5.1); SODIUM SERUM 137 mmol/L (136-145); TOTAL PROTEIN, SERUM 6.6 g/dL (6.4-8.2); UREA NITROGEN, BLOOD 7 mg/dL (7-18)
[2019-01-16] MEDS: PANTOPRAZOLE SODIUM 40 MG DR TABLET PO SCH (09:31)
[2019-01-16] MEDS: ASPIRIN 81 MG EC TABLET PO SCH (09:31)
[2019-01-16] MEDS: DOCUSATE SODIUM 100 MG CAPSULE PO SCH ×2 (09:32→20:34)
[2019-01-16] MEDS: LOSARTAN POTASSIUM 50 MG TABLET PO SCH (09:32)
[2019-01-16 11:27] VITALS: BP 131/80
[2019-01-16 15:20] VITALS: BP 136/78
[2019-01-16] MEDS ORDERED: *CLINICAL-TOTAL PARENTERAL NUTRITION DOSING CLINICAL ONE (15:30)
[2019-01-16] MEDS ORDERED: *CLINICAL-PERIPHERAL PARENTERAL NUTRITION DOSING CLINICAL ONE (16:00)
[2019-01-16] MEDS: LEVOFLOXACIN 750 MG/D5% WATER 150 ML IV SCH (18:12)
[2019-01-16 19:46] VITALS: BP 120/69
[2019-01-16] MEDS ORDERED: PPN SOLUTION 1 EA in AA 4.25%/CALCIUM/LYTES/D5W 1,000 ML IV SCH (21:00)
[2019-01-17 00:59] VITALS: BP 155/92
[2019-01-17] MEDS: MORPHINE SULFATE 2 MG/ML SYRINGE IVP PRN ×3 (01:18→21:03)
[2019-01-17 03:14] VITALS: BP 135/95
[2019-01-17 06:16] LABS: BASOPHILS % (AUTO) 0.5 % (0.0-2.0); HEMATOCRIT 38.1 % (41-53); HEMOGLOBIN 12.7 g/dL (13.5-17.5); LYMPHOCYTES # (AUTO) 0.9 K/uL (1.0-4.8); LYMPHOCYTES % (AUTO) 7.3 % (22.0-44.0); MEAN CORPUSCULAR HEMOGLOBIN 31.1 pg (26.0-34.0); MEAN CORPUSCULAR HGB CONC 33.2 G/dL (31.0-37.0); MEAN CORPUSCULAR VOLUME 94 fL (80-100); MONOCYTES # (AUTO) 0.6 K/uL (0.1-1.0); MONOCYTES % (AUTO) 5.2 % (2.0-9.0); NEUTROPHILS # (AUTO) 10.7 K/uL (1.8-7.7); PLATELET COUNT (AUTO) 669 K/uL (150-450); RED BLOOD CELL COUNT(AUTO) 4.07 MIL/uL (4.50-5.90); RED CELL DISTRIBUTION WIDTH 17.8 % (11.5-14.5)
[2019-01-17 07:31] LABS: ALANINE AMINOTRANSFERASE 95 U/L (12-78); ALBUMIN 2.7 g/dL (3.4-5.0); ALKALINE PHOSPHATASE 73 U/L (46-116); ANION GAP 5 mmol/L (8-16); ASPARTATE AMINOTRANSFERASE 74 U/L (15-37); BILIRUBIN,TOTAL 0.4 mg/dL (0.1-1.0); CARBON DIOXIDE 32 mmol/L (22-29); CHLORIDE 96 mmol/L (98-107); GLOMERULAR FILTR. RATE CALC > 60 mL/min (>60); GLUCOSE,RANDOM 109 mg/dL (70-110); PHOSPHORUS 4.3 mg/dL (2.5-4.9); POTASSIUM 4.4 mmol/L (3.5-5.1); SODIUM SERUM 133 mmol/L (136-145); TOTAL PROTEIN, SERUM 6.8 g/dL (6.4-8.2); UREA NITROGEN, BLOOD 9 mg/dL (7-18)
[2019-01-17 08:29] VITALS: BP 144/77
[2019-01-17] MEDS: DOCUSATE SODIUM 100 MG CAPSULE PO SCH ×2 (08:55→21:00)
[2019-01-17] MEDS: LOSARTAN POTASSIUM 50 MG TABLET PO SCH (08:56)
[2019-01-17] MEDS: PANTOPRAZOLE SODIUM 40 MG DR TABLET PO SCH (08:57)
[2019-01-17] MEDS: ASPIRIN 81 MG EC TABLET PO SCH (08:57)
[2019-01-17 12:38] VITALS: BP 144/93
[2019-01-17 15:47] VITALS: BP 138/81
[2019-01-17] MEDS: LEVOFLOXACIN 750 MG/D5% WATER 150 ML IV SCH (18:01)
[2019-01-17 19:48] VITALS: BP 107/81
[2019-01-17] MEDS ORDERED: PPN SOLUTION 1 EA, SODIUM CHLORIDE 70 MEQ, SODIUM PHOS,M-BASIC-D-BASIC 30 MEQ, POTASSIU... IV SCH ×9 (22:00)
[2019-01-18 00:18] VITALS: BP 106/74
[2019-01-18] MEDS: MORPHINE SULFATE 2 MG/ML SYRINGE IVP PRN ×2 (02:11→20:52)
[2019-01-18 04:36] VITALS: BP 126/81
[2019-01-18 06:53] LABS: BASOPHILS % (AUTO) 0.5 % (0.0-2.0); EOSINOPHILS % (AUTO) 2.7 % (1.0-6.0); HEMATOCRIT 37.3 % (41-53); HEMOGLOBIN 12.1 g/dL (13.5-17.5); LYMPHOCYTES # (AUTO) 1.1 K/uL (1.0-4.8); LYMPHOCYTES % (AUTO) 9.5 % (22.0-44.0); MEAN CORPUSCULAR HEMOGLOBIN 31.2 pg (26.0-34.0); MEAN CORPUSCULAR HGB CONC 32.6 G/dL (31.0-37.0); MEAN CORPUSCULAR VOLUME 96 fL (80-100); MONOCYTES # (AUTO) 0.6 K/uL (0.1-1.0); MONOCYTES % (AUTO) 5.4 % (2.0-9.0); NEUTROPHILS # (AUTO) 9.4 K/uL (1.8-7.7); NEUTROPHILS % (AUTO) 81.9 % (40.0-70.0); PLATELET COUNT (AUTO) 620 K/uL (150-450); RED BLOOD CELL COUNT(AUTO) 3.88 MIL/uL (4.50-5.90); RED CELL DISTRIBUTION WIDTH 17.7 % (11.5-14.5)
[2019-01-18 07:10] LABS: ALANINE AMINOTRANSFERASE 100 U/L (12-78); ALBUMIN 2.5 g/dL (3.4-5.0); ALKALINE PHOSPHATASE 70 U/L (46-116); ANION GAP 5 mmol/L (8-16); ASPARTATE AMINOTRANSFERASE 72 U/L (15-37); BILIRUBIN,TOTAL 0.3 mg/dL (0.1-1.0); CALCIUM, TOTAL 8.7 mg/dL (8.8-10.5); CARBON DIOXIDE 31 mmol/L (22-29); CHLORIDE 90 mmol/L (98-107); CREATININE 0.55 mg/dL (0.60-1.30); GLOMERULAR FILTR. RATE CALC > 60 mL/min (>60); GLUCOSE,RANDOM 324 mg/dL (70-110); POTASSIUM 5.2 mmol/L (3.5-5.1); SODIUM SERUM 126 mmol/L (136-145); TOTAL PROTEIN, SERUM 6.4 g/dL (6.4-8.2); UREA NITROGEN, BLOOD 18 mg/dL (7-18)
[2019-01-18 08:04] VITALS: BP 102/78
[2019-01-18] MEDS: PANTOPRAZOLE SODIUM 40 MG DR TABLET PO SCH (08:50)
[2019-01-18] MEDS: DOCUSATE SODIUM 100 MG CAPSULE PO SCH ×2 (08:50→22:31)
[2019-01-18] MEDS: ASPIRIN 81 MG EC TABLET PO SCH (08:50)
[2019-01-18] MEDS: LOSARTAN POTASSIUM 50 MG TABLET PO SCH (08:50)
[2019-01-18 11:31] VITALS: BP 127/80
[2019-01-18 12:43] LABS: ANION GAP 6 mmol/L (8-16); CALCIUM, TOTAL 9.2 mg/dL (8.8-10.5); CARBON DIOXIDE 33 mmol/L (22-29); CHLORIDE 95 mmol/L (98-107); CREATININE 0.55 mg/dL (0.60-1.30); GLOMERULAR FILTR. RATE CALC > 60 mL/min (>60); GLUCOSE,RANDOM 122 mg/dL (70-110); PHOSPHORUS 4.3 mg/dL (2.5-4.9); POTASSIUM 4.5 mmol/L (3.5-5.1); SODIUM SERUM 134 mmol/L (136-145); UREA NITROGEN, BLOOD 20 mg/dL (7-18)
[2019-01-18 15:09] VITALS: BP 126/70
[2019-01-18] MEDS: LEVOFLOXACIN 750 MG/D5% WATER 150 ML IV SCH (16:58)
[2019-01-18 19:10] LABS: ABG A-A DIFF O2 78.6 mmHg (10-20.0); ABG BASE EXCESS 12.1 mmol/L (-2.0-3.0); ABG CARBOXYHEMOGLOBIN 0.6 % (0.0-1.5); ABG HCO3 34.3 mmol/L (22.0-26.0); ABG METHEMOGLOBIN 0.3 % (0.0-1.5); ABG OXYGEN CONTENT 17.9 mL/dL (15.0-23.0); ABG OXYGEN SATURATION 95.8 % (95.0-98.0); ABG OXYHEMOGLOBIN 94.9 % (94.0-100.0); ABG PCO2 47 mmHg (35-45); ABG PH 7.496 (7.35-7.450); ABG TOTAL HEMOGLOBIN 13.4 G/dL (12.0-18.0); PO2, ARTERIAL BG 80.8 mmHg (84.0-92.0); SOURCE, BLOOD GAS ARTERIAL; TEMPERATURE, FAHRENHEIT, BG 97.4 FAHREN (96.0-98.6)
[2019-01-18 19:11] LABS: CPAP, BG 10 cm H2O; O2 DEVICE,BLOOD GAS CPAP (ROOM AIR); SITE, BLOOD GAS LFT BRACHIAL; SPONTANEOUS VT, BG 457 ml
[2019-01-18 20:06] VITALS: BP 128/77
[2019-01-18] MEDS ORDERED: PPN SOLUTION 1 EA, SODIUM CHLORIDE 80 MEQ, SODIUM PHOS,M-BASIC-D-BASIC 20 MEQ, POTASSIU... IV SCH ×9 (22:00)
[2019-01-19] VITALS (7 sets, daily range): BP systolic 105–129; BP diastolic 53–76
[2019-01-19] MEDS: MORPHINE SULFATE 2 MG/ML SYRINGE IVP PRN ×3 (00:54→21:40)
[2019-01-19 06:12] LABS: BASOPHILS % (AUTO) 0.8 % (0.0-2.0); EOSINOPHILS % (AUTO) 2.6 % (1.0-6.0); HEMATOCRIT 40.3 % (41-53); HEMOGLOBIN 13.2 g/dL (13.5-17.5); LYMPHOCYTES % (AUTO) 7.6 % (22.0-44.0); MEAN CORPUSCULAR HEMOGLOBIN 31.1 pg (26.0-34.0); MEAN CORPUSCULAR HGB CONC 32.6 G/dL (31.0-37.0); MEAN CORPUSCULAR VOLUME 95 fL (80-100); MONOCYTES # (AUTO) 0.8 K/uL (0.1-1.0); MONOCYTES % (AUTO) 6.2 % (2.0-9.0); NEUTROPHILS # (AUTO) 10.4 K/uL (1.8-7.7); NEUTROPHILS % (AUTO) 82.8 % (40.0-70.0); PLATELET COUNT (AUTO) 656 K/uL (150-450); RED BLOOD CELL COUNT(AUTO) 4.23 MIL/uL (4.50-5.90); RED CELL DISTRIBUTION WIDTH 17.5 % (11.5-14.5)
[2019-01-19 06:45] LABS: ALANINE AMINOTRANSFERASE 126 U/L (12-78); ALBUMIN 2.9 g/dL (3.4-5.0); ALKALINE PHOSPHATASE 84 U/L (46-116); ANION GAP 6 mmol/L (8-16); ASPARTATE AMINOTRANSFERASE 87 U/L (15-37); BILIRUBIN,TOTAL 0.3 mg/dL (0.1-1.0); CALCIUM, TOTAL 9.1 mg/dL (8.8-10.5); CARBON DIOXIDE 33 mmol/L (22-29); CHLORIDE 96 mmol/L (98-107); CREATININE 0.56 mg/dL (0.60-1.30); GLOMERULAR FILTR. RATE CALC > 60 mL/min (>60); GLUCOSE,RANDOM 127 mg/dL (70-110); PHOSPHORUS 4.6 mg/dL (2.5-4.9); POTASSIUM 4.5 mmol/L (3.5-5.1); SODIUM SERUM 135 mmol/L (136-145); TOTAL PROTEIN, SERUM 7.4 g/dL (6.4-8.2); UREA NITROGEN, BLOOD 24 mg/dL (7-18)
[2019-01-19] MEDS: DOCUSATE SODIUM 100 MG CAPSULE PO SCH ×2 (09:00→20:31)
[2019-01-19] MEDS: LOSARTAN POTASSIUM 50 MG TABLET PO SCH (09:00)
[2019-01-19] MEDS: ASPIRIN 81 MG EC TABLET PO SCH (09:00)
[2019-01-19] MEDS: PANTOPRAZOLE SODIUM 40 MG DR TABLET PO SCH (09:00)
[2019-01-19] MEDS ORDERED: RINGERS SOLUTION,LACTATED 1,000 ML IV ONE (09:14)
[2019-01-19] MEDS ORDERED: BUPIVACAINE HCL/PF 0.5% 30 ML VIAL ONE (09:14)
[2019-01-19] MEDS ORDERED: SODIUM CHLORIDE 0.9% 1,000 ML IV ONE ×3 (09:14→12:00)
[2019-01-19] MEDS ORDERED: SODIUM CHLORIDE 0.9% 500 ML IV ONE (10:15)
[2019-01-19 12:59] LABS: ABG A-A DIFF O2 40.3 mmHg (10-20.0); ABG BASE EXCESS 9.7 mmol/L (-2.0-3.0); ABG CARBOXYHEMOGLOBIN 0.9 % (0.0-1.5); ABG HCO3 32.1 mmol/L (22.0-26.0); ABG METHEMOGLOBIN 0.3 % (0.0-1.5); ABG OXYGEN SATURATION 86.7 % (95.0-98.0); ABG OXYHEMOGLOBIN 85.7 % (94.0-100.0); ABG PCO2 46 mmHg (35-45); ABG PH 7.474 (7.35-7.450); ABG TOTAL HEMOGLOBIN 13.3 G/dL (12.0-18.0); PO2, ARTERIAL BG 53.9 mmHg (84.0-92.0); SOURCE, BLOOD GAS ARTERIAL; TEMPERATURE, FAHRENHEIT, BG 98.6 FAHREN (96.0-98.6)
[2019-01-19 13:00] LABS: O2 DEVICE,BLOOD GAS ROOM AIR (ROOM AIR); SITE, BLOOD GAS ARTERIAL LINE
[2019-01-19] MEDS ORDERED: PHENYLEPHRINE 200 MG/D5%-WATER 250 ML IV PRN ×2 (13:20→19:54)
[2019-01-19] MEDS ORDERED: MetroNIDAZOLE 500 MG/NACL 100 ML IV ONE (13:44)
[2019-01-19] MEDS: MetroNIDAZOLE 500 MG/NACL 100 ML IV SCH ×2 (14:00→21:19)
[2019-01-19] MEDS ORDERED: BUPIVACAINE LIPOSOME/PF 1.3%-13.3MG/ML SUSPENSION 20 ML VIAL INJ ONE (14:30)
[2019-01-19] MEDS ORDERED: SODIUM CHLORIDE 0.9% 10 ML ONE (14:44)
[2019-01-19] MEDS: LEVOFLOXACIN 750 MG/D5% WATER 150 ML IV SCH (18:12)
[2019-01-19] MEDS ORDERED: ALBUMIN HUMAN 25%-25GM/100ML 100 ML IV ONE (20:00)
[2019-01-19] MEDS ORDERED: [UNRECOGNIZED DRUG - OTHER] IV SCH ×8 (22:00)
[2019-01-19] MEDS ORDERED: PPN IV SCH ×8 (22:00)
[2019-01-19] MEDS ORDERED: SODIUM CHLORIDE IV SCH ×8 (22:00)
[2019-01-19] MEDS ORDERED: POTASSIUM PHOS M BASIC D BASIC IV SCH ×8 (22:00)
[2019-01-20] VITALS (8 sets, daily range): BP systolic 89–127; BP diastolic 44–70
[2019-01-20] MEDS: MORPHINE SULFATE 2 MG/ML SYRINGE IVP PRN ×5 (01:45→20:05)
[2019-01-20 02:34] LABS: GLUCOSE,POINT OF CARE 136 MG/DL (70-110)
[2019-01-20 04:59] LABS: BASOPHILS % (AUTO) 0.5 % (0.0-2.0); EOSINOPHILS % (AUTO) 0.4 % (1.0-6.0); HEMATOCRIT 32.9 % (41-53); HEMOGLOBIN 10.9 g/dL (13.5-17.5); LYMPHOCYTES # (AUTO) 0.7 K/uL (1.0-4.8); LYMPHOCYTES % (AUTO) 6.3 % (22.0-44.0); MEAN CORPUSCULAR HEMOGLOBIN 31.5 pg (26.0-34.0); MEAN CORPUSCULAR VOLUME 95 fL (80-100); MONOCYTES # (AUTO) 0.6 K/uL (0.1-1.0); MONOCYTES % (AUTO) 5.6 % (2.0-9.0); NEUTROPHILS # (AUTO) 9.3 K/uL (1.8-7.7); PLATELET COUNT (AUTO) 487 K/uL (150-450); RED BLOOD CELL COUNT(AUTO) 3.45 MIL/uL (4.50-5.90); RED CELL DISTRIBUTION WIDTH 17.3 % (11.5-14.5)
[2019-01-20 05:03] LABS: NEUTROPHILS % (AUTO) 87.2 % (40.0-70.0)
[2019-01-20 05:16] LABS: ALANINE AMINOTRANSFERASE 71 U/L (12-78); ALBUMIN 2.6 g/dL (3.4-5.0); ALKALINE PHOSPHATASE 51 U/L (46-116); ANION GAP 7 mmol/L (8-16); ASPARTATE AMINOTRANSFERASE 47 U/L (15-37); BILIRUBIN,TOTAL 0.6 mg/dL (0.1-1.0); CALCIUM, TOTAL 7.9 mg/dL (8.8-10.5); CARBON DIOXIDE 30 mmol/L (22-29); CHLORIDE 103 mmol/L (98-107); CREATININE 0.47 mg/dL (0.60-1.30); GLOMERULAR FILTR. RATE CALC > 60 mL/min (>60); GLUCOSE,RANDOM 152 mg/dL (70-110); PHOSPHORUS 4.1 mg/dL (2.5-4.9); POTASSIUM 3.7 mmol/L (3.5-5.1); SODIUM SERUM 140 mmol/L (136-145); TOTAL PROTEIN, SERUM 5.5 g/dL (6.4-8.2); UREA NITROGEN, BLOOD 23 mg/dL (7-18)
[2019-01-20] MEDS: MetroNIDAZOLE 500 MG/NACL 100 ML IV SCH ×3 (05:36→21:45)
[2019-01-20] MEDS ORDERED: ROCURONIUM BROMIDE 10 MG/ML 5 ML VIAL IVP ONE (06:39)
[2019-01-20] MEDS ORDERED: LIDOCAINE/PF 2% 5 ML VIAL IM ONE (06:39)
[2019-01-20] MEDS ORDERED: ONDANSETRON HCL 4 MG/2 ML VIAL IVP ONE (06:39)
[2019-01-20] MEDS ORDERED: 0.9% SODIUM CHLORIDE 10 ML VIAL IVP ONE (06:39)
[2019-01-20] MEDS ORDERED: MIDAZOLAM HCL 2 MG/2 ML VIAL IVP ONE (06:39)
[2019-01-20] MEDS ORDERED: PHENYLEPHRINE HCL 10 MG/ML VIAL IVP ONE (06:39)
[2019-01-20] MEDS ORDERED: MORPHINE SULFATE 4 MG/ML SYRINGE IVP ONE (06:39)
[2019-01-20] MEDS ORDERED: FentaNYL CITRATE-PF 100 MCG/2 ML VIAL IVP ONE (06:39)
[2019-01-20] MEDS ORDERED: SUCCINYLCHOLINE CHLORIDE 20 MG/ML 10 ML VIAL IVP ONE (06:39)
[2019-01-20] MEDS ORDERED: PROPOFOL 1% 20 ML VIAL IVP ONE (06:39)
[2019-01-20] MEDS ORDERED: EPHEDrine SULFATE 50 MG/ML VIAL IM ONE (06:39)
[2019-01-20] MEDS: PANTOPRAZOLE SODIUM 40 MG DR TABLET PO SCH (09:00)
[2019-01-20] MEDS: LOSARTAN POTASSIUM 50 MG TABLET PO SCH (09:00)
[2019-01-20] MEDS: ASPIRIN 81 MG EC TABLET PO SCH (09:00)
[2019-01-20] MEDS: DOCUSATE SODIUM 100 MG CAPSULE PO SCH ×2 (09:00→20:05)
[2019-01-20 15:49] LABS: GLUCOSE,POINT OF CARE 138 MG/DL (70-110)
[2019-01-20] MEDS: LEVOFLOXACIN 750 MG/D5% WATER 150 ML IV SCH (18:46)
[2019-01-20] MEDS ORDERED: PPN IV SCH ×8 (22:00)
[2019-01-20] MEDS ORDERED: SODIUM CHLORIDE IV SCH ×8 (22:00)
[2019-01-20] MEDS ORDERED: POTASSIUM PHOS M BASIC D BASIC IV SCH ×8 (22:00)
[2019-01-20] MEDS ORDERED: [UNRECOGNIZED DRUG - OTHER] IV SCH ×8 (22:00)
[2019-01-21] VITALS (7 sets, daily range): BP systolic 110–130; BP diastolic 63–84
[2019-01-21] MEDS: MORPHINE SULFATE 2 MG/ML SYRINGE IVP PRN ×4 (04:03→18:00)
[2019-01-21 05:07] LABS: BASOPHILS % (AUTO) 0.3 % (0.0-2.0); HEMATOCRIT 28.4 % (41-53); HEMOGLOBIN 9.4 g/dL (13.5-17.5); LYMPHOCYTES # (AUTO) 0.6 K/uL (1.0-4.8); LYMPHOCYTES % (AUTO) 5.7 % (22.0-44.0); MEAN CORPUSCULAR HEMOGLOBIN 31.3 pg (26.0-34.0); MEAN CORPUSCULAR HGB CONC 33.1 G/dL (31.0-37.0); MEAN CORPUSCULAR VOLUME 95 fL (80-100); MONOCYTES # (AUTO) 0.6 K/uL (0.1-1.0); MONOCYTES % (AUTO) 5.9 % (2.0-9.0); NEUTROPHILS # (AUTO) 8.4 K/uL (1.8-7.7); NEUTROPHILS % (AUTO) 85.1 % (40.0-70.0); PLATELET COUNT (AUTO) 408 K/uL (150-450); RED CELL DISTRIBUTION WIDTH 17.3 % (11.5-14.5)
[2019-01-21] MEDS: MetroNIDAZOLE 500 MG/NACL 100 ML IV SCH ×2 (05:12→14:31)
[2019-01-21 05:30] LABS: ALANINE AMINOTRANSFERASE 46 U/L (12-78); ALBUMIN 2.3 g/dL (3.4-5.0); ALKALINE PHOSPHATASE 51 U/L (46-116); ANION GAP 6 mmol/L (8-16); ASPARTATE AMINOTRANSFERASE 26 U/L (15-37); BILIRUBIN,TOTAL 0.2 mg/dL (0.1-1.0); CALCIUM, TOTAL 8.2 mg/dL (8.8-10.5); CARBON DIOXIDE 30 mmol/L (22-29); CHLORIDE 104 mmol/L (98-107); CREATININE 0.42 mg/dL (0.60-1.30); GLOMERULAR FILTR. RATE CALC > 60 mL/min (>60); GLUCOSE,RANDOM 133 mg/dL (70-110); PHOSPHORUS 2.1 mg/dL (2.5-4.9); POTASSIUM 3.1 mmol/L (3.5-5.1); SODIUM SERUM 140 mmol/L (136-145); TOTAL PROTEIN, SERUM 5.7 g/dL (6.4-8.2); UREA NITROGEN, BLOOD 18 mg/dL (7-18)
[2019-01-21] MEDS: POTASSIUM CHL 10 MEQ/WATER 50 ML IV PRN ×6 (06:03→13:23)
[2019-01-21] MEDS: DOCUSATE SODIUM 100 MG CAPSULE PO SCH ×2 (09:00→21:00)
[2019-01-21] MEDS: PANTOPRAZOLE SODIUM 40 MG DR TABLET PO SCH (09:00)
[2019-01-21] MEDS: ASPIRIN 81 MG EC TABLET PO SCH (09:00)
[2019-01-21] MEDS: LOSARTAN POTASSIUM 50 MG TABLET PO SCH (09:00)
[2019-01-21] MEDS: LEVOFLOXACIN 750 MG/D5% WATER 150 ML IV SCH (17:24)
[2019-01-21] MEDS: HYDROCODONE/ACETAMINOPHEN 5-325 MG TABLET PO PRN (21:51)
[2019-01-21] MEDS ORDERED: [UNRECOGNIZED DRUG - OTHER] IV SCH ×8 (22:00)
[2019-01-21] MEDS ORDERED: POTASSIUM PHOS M BASIC D BASIC IV SCH ×8 (22:00)
[2019-01-21] MEDS ORDERED: SODIUM CHLORIDE IV SCH ×8 (22:00)
[2019-01-21] MEDS ORDERED: PPN IV SCH ×8 (22:00)
[2019-01-22] VITALS (7 sets, daily range): BP systolic 108–136; BP diastolic 58–77
[2019-01-22] MEDS: HYDROCODONE/ACETAMINOPHEN 5-325 MG TABLET PO PRN ×3 (04:41→20:25)
[2019-01-22 05:18] LABS: BASOPHILS % (AUTO) 0.6 % (0.0-2.0); EOSINOPHILS % (AUTO) 4.4 % (1.0-6.0); HEMATOCRIT 29.8 % (41-53); HEMOGLOBIN 9.9 g/dL (13.5-17.5); LYMPHOCYTES # (AUTO) 0.7 K/uL (1.0-4.8); LYMPHOCYTES % (AUTO) 8.2 % (22.0-44.0); MEAN CORPUSCULAR HEMOGLOBIN 31.2 pg (26.0-34.0); MEAN CORPUSCULAR HGB CONC 33.1 G/dL (31.0-37.0); MEAN CORPUSCULAR VOLUME 94 fL (80-100); MONOCYTES # (AUTO) 0.6 K/uL (0.1-1.0); MONOCYTES % (AUTO) 6.5 % (2.0-9.0); NEUTROPHILS % (AUTO) 80.3 % (40.0-70.0); PLATELET COUNT (AUTO) 428 K/uL (150-450); RED BLOOD CELL COUNT(AUTO) 3.17 MIL/uL (4.50-5.90); RED CELL DISTRIBUTION WIDTH 17.6 % (11.5-14.5)
[2019-01-22 05:30] LABS: ANION GAP 4 mmol/L (8-16); CALCIUM, TOTAL 8.2 mg/dL (8.8-10.5); CARBON DIOXIDE 31 mmol/L (22-29); CHLORIDE 105 mmol/L (98-107); CREATININE 0.44 mg/dL (0.60-1.30); GLOMERULAR FILTR. RATE CALC > 60 mL/min (>60); GLUCOSE,RANDOM 136 mg/dL (70-110); PHOSPHORUS 2.9 mg/dL (2.5-4.9); POTASSIUM 3.1 mmol/L (3.5-5.1); SODIUM SERUM 140 mmol/L (136-145); UREA NITROGEN, BLOOD 16 mg/dL (7-18)
[2019-01-22] MEDS: POTASSIUM CHL 10 MEQ/WATER 50 ML IV PRN (05:56)
[2019-01-22] MEDS: DOCUSATE SODIUM 100 MG CAPSULE PO SCH ×2 (10:52→20:27)
[2019-01-22] MEDS: PANTOPRAZOLE SODIUM 40 MG DR TABLET PO SCH (10:52)
[2019-01-22] MEDS: ASPIRIN 81 MG EC TABLET PO SCH (10:53)
[2019-01-22] MEDS: LOSARTAN POTASSIUM 50 MG TABLET PO SCH (10:53)
[2019-01-22] MEDS: POTASSIUM CHLORIDE 20 MEQ ER TABLET PO PRN (17:29)
[2019-01-22] MEDS: LEVOFLOXACIN 750 MG/D5% WATER 150 ML IV SCH (18:13)
[2019-01-22] MEDS ORDERED: POTASSIUM CHLORIDE IV SCH ×9 (22:00)
[2019-01-22] MEDS ORDERED: [UNRECOGNIZED DRUG - OTHER] IV SCH ×9 (22:00)
[2019-01-22] MEDS ORDERED: PPN IV SCH ×9 (22:00)
[2019-01-22] MEDS ORDERED: SODIUM CHLORIDE IV SCH ×9 (22:00)
[2019-01-23 00:13] VITALS: BP 104/59
[2019-01-23 04:48] VITALS: BP 91/59
[2019-01-23 06:15] LABS: ANION GAP 5 mmol/L (8-16); CALCIUM, TOTAL 8.1 mg/dL (8.8-10.5); CARBON DIOXIDE 31 mmol/L (22-29); CHLORIDE 103 mmol/L (98-107); CREATININE 0.48 mg/dL (0.60-1.30); GLOMERULAR FILTR. RATE CALC > 60 mL/min (>60); GLUCOSE,RANDOM 132 mg/dL (70-110); PHOSPHORUS 3.2 mg/dL (2.5-4.9); SODIUM SERUM 139 mmol/L (136-145); UREA NITROGEN, BLOOD 11 mg/dL (7-18)
[2019-01-23 06:30] LABS: POTASSIUM 2.7 mmol/L (3.5-5.1)
[2019-01-23] MEDS ORDERED: SODIUM CHLORIDE 0.9% 100 ML ONE (06:35)
[2019-01-23] MEDS: POTASSIUM CHL 10 MEQ/WATER 50 ML IV PRN ×4 (06:48→14:26)
[2019-01-23 07:31] VITALS: BP 96/68
[2019-01-23] MEDS ORDERED: MAGNESIUM SULFATE 2 GM in DEXTROSE 5%-WATER 50 ML IV ONE (08:00)
[2019-01-23] MEDS: DOCUSATE SODIUM 100 MG CAPSULE PO SCH ×2 (08:16→20:21)
[2019-01-23] MEDS: LOSARTAN POTASSIUM 50 MG TABLET PO SCH (08:16)
[2019-01-23] MEDS: PANTOPRAZOLE SODIUM 40 MG DR TABLET PO SCH (08:52)
[2019-01-23] MEDS: ASPIRIN 81 MG EC TABLET PO SCH (08:52)
[2019-01-23] MEDS: MORPHINE SULFATE 2 MG/ML SYRINGE IVP PRN (10:51)
[2019-01-23] MEDS ORDERED: SODIUM CHLORIDE 0.9% 1,000 ML IV ONE (14:29)
[2019-01-23 15:10] VITALS: BP 106/69
[2019-01-23] MEDS: HYDROCODONE/ACETAMINOPHEN 5-325 MG TABLET PO PRN (17:21)
[2019-01-23] MEDS: POTASSIUM CHLORIDE 20 MEQ ER TABLET PO PRN (17:25)
[2019-01-23] MEDS: LEVOFLOXACIN 750 MG/D5% WATER 150 ML IV SCH (18:16)
[2019-01-23 20:15] VITALS: BP 90/56
[2019-01-23] MEDS ORDERED: PPN IV SCH ×9 (22:00)
[2019-01-23] MEDS ORDERED: POTASSIUM CHLORIDE IV SCH ×9 (22:00)
[2019-01-23] MEDS ORDERED: SODIUM CHLORIDE IV SCH ×9 (22:00)
[2019-01-23] MEDS ORDERED: [UNRECOGNIZED DRUG - OTHER] IV SCH ×9 (22:00)
[2019-01-24] VITALS (7 sets, daily range): BP systolic 94–114; BP diastolic 53–76
[2019-01-24] MEDS: HYDROCODONE/ACETAMINOPHEN 5-325 MG TABLET PO PRN ×2 (01:49→20:05)
[2019-01-24] MEDS: POTASSIUM CHLORIDE 20 MEQ ER TABLET PO PRN (01:49)
[2019-01-24 06:45] LABS: ANION GAP 2 mmol/L (8-16); CALCIUM, TOTAL 8.2 mg/dL (8.8-10.5); CARBON DIOXIDE 33 mmol/L (22-29); CHLORIDE 105 mmol/L (98-107); CREATININE 0.37 mg/dL (0.60-1.30); GLOMERULAR FILTR. RATE CALC > 60 mL/min (>60); GLUCOSE,RANDOM 127 mg/dL (70-110); PHOSPHORUS 3.2 mg/dL (2.5-4.9); POTASSIUM 3.9 mmol/L (3.5-5.1); SODIUM SERUM 140 mmol/L (136-145); UREA NITROGEN, BLOOD 9 mg/dL (7-18)
[2019-01-24] MEDS: DOCUSATE SODIUM 100 MG CAPSULE PO SCH ×2 (09:00→20:05)
[2019-01-24] MEDS: LOSARTAN POTASSIUM 50 MG TABLET PO SCH (10:06)
[2019-01-24] MEDS: ASPIRIN 81 MG EC TABLET PO SCH (10:06)
[2019-01-24] MEDS: PANTOPRAZOLE SODIUM 40 MG DR TABLET PO SCH (10:06)
[2019-01-24] MEDS: MORPHINE SULFATE 2 MG/ML SYRINGE IVP PRN (14:35)
[2019-01-24] MEDS ORDERED: GADOBUTROL 1 MMOL/ML 10 ML VIAL IVP ONE (15:09)
[2019-01-24] MEDS: LEVOFLOXACIN 750 MG/D5% WATER 150 ML IV SCH (17:29)
[2019-01-24] MEDS: SODIUM CHLORIDE IV SCH ×9 (23:26)
[2019-01-24] MEDS: POTASSIUM CHLORIDE IV SCH ×9 (23:26)
[2019-01-24] MEDS: PPN IV SCH ×9 (23:26)
[2019-01-24] MEDS: [UNRECOGNIZED DRUG - OTHER] IV SCH ×9 (23:26)
[2019-01-25] MEDS: ZOLPIDEM TARTRATE 5 MG TABLET PO PRN ×2 (00:29→22:35)
[2019-01-25 04:39] VITALS: BP 100/59
[2019-01-25 06:04] LABS: BASOPHILS % (AUTO) 0.7 % (0.0-2.0); EOSINOPHILS % (AUTO) 5.8 % (1.0-6.0); HEMATOCRIT 31.6 % (41-53); HEMOGLOBIN 10.3 g/dL (13.5-17.5); LYMPHOCYTES # (AUTO) 1.2 K/uL (1.0-4.8); LYMPHOCYTES % (AUTO) 13.9 % (22.0-44.0); MEAN CORPUSCULAR HGB CONC 32.4 G/dL (31.0-37.0); MEAN CORPUSCULAR VOLUME 96 fL (80-100); MONOCYTES # (AUTO) 0.8 K/uL (0.1-1.0); MONOCYTES % (AUTO) 9.5 % (2.0-9.0); NEUTROPHILS # (AUTO) 6.1 K/uL (1.8-7.7); NEUTROPHILS % (AUTO) 70.1 % (40.0-70.0); PLATELET COUNT (AUTO) 400 K/uL (150-450); RED BLOOD CELL COUNT(AUTO) 3.31 MIL/uL (4.50-5.90); RED CELL DISTRIBUTION WIDTH 17.1 % (11.5-14.5)
[2019-01-25 06:27] LABS: ANION GAP 3 mmol/L (8-16); CARBON DIOXIDE 33 mmol/L (22-29); CHLORIDE 102 mmol/L (98-107); CREATININE 0.32 mg/dL (0.60-1.30); GLOMERULAR FILTR. RATE CALC > 60 mL/min (>60); GLUCOSE,RANDOM 123 mg/dL (70-110); PHOSPHORUS 3.3 mg/dL (2.5-4.9); POTASSIUM 3.6 mmol/L (3.5-5.1); SODIUM SERUM 138 mmol/L (136-145); UREA NITROGEN, BLOOD 11 mg/dL (7-18)
[2019-01-25 07:40] VITALS: BP 100/64
[2019-01-25] MEDS: DOCUSATE SODIUM 100 MG CAPSULE PO SCH ×2 (09:00→20:48)
[2019-01-25] MEDS: LOSARTAN POTASSIUM 50 MG TABLET PO SCH ×2 (09:00→11:51)
[2019-01-25 11:15] VITALS: BP 108/58
[2019-01-25] MEDS: ASPIRIN 81 MG EC TABLET PO SCH (11:51)
[2019-01-25] MEDS: PANTOPRAZOLE SODIUM 40 MG DR TABLET PO SCH (11:51)
[2019-01-25] MEDS: MORPHINE SULFATE 2 MG/ML SYRINGE IVP PRN (13:33)
[2019-01-25 15:36] VITALS: BP 106/64
[2019-01-25] MEDS: LEVOFLOXACIN 750 MG/D5% WATER 150 ML IV SCH (17:57)
[2019-01-25] MEDS ORDERED: SODIUM CHLORIDE 0.9% 500 ML IV ONE (17:59)
[2019-01-25 20:05] VITALS: BP 99/64
[2019-01-25] MEDS: POTASSIUM CHLORIDE IV SCH ×9 (22:11)
[2019-01-25] MEDS: PPN IV SCH ×9 (22:11)
[2019-01-25] MEDS: SODIUM CHLORIDE IV SCH ×9 (22:11)
[2019-01-25] MEDS: [UNRECOGNIZED DRUG - OTHER] IV SCH ×9 (22:11)
[2019-01-26 00:23] VITALS: BP 100/76
[2019-01-26 04:00] VITALS: BP 105/76
[2019-01-26 07:11] LABS: ANION GAP 5 mmol/L (8-16); C-REACTIVE PROTEIN QUANT 2.55 mg/dL (0.00-0.30); CALCIUM, TOTAL 8.3 mg/dL (8.8-10.5); CARBON DIOXIDE 34 mmol/L (22-29); CHLORIDE 100 mmol/L (98-107); CREATININE 0.33 mg/dL (0.60-1.30); GLOMERULAR FILTR. RATE CALC > 60 mL/min (>60); GLUCOSE,RANDOM 125 mg/dL (70-110); PHOSPHORUS 3.6 mg/dL (2.5-4.9); SODIUM SERUM 139 mmol/L (136-145); UREA NITROGEN, BLOOD 11 mg/dL (7-18)
[2019-01-26 07:17] LABS: INR 0.9 (0.9-1.1); PROTHROMBIN TIME 9.8 SEC (9.4-11.6)
[2019-01-26 08:10] VITALS: BP 114/76
[2019-01-26] MEDS: DOCUSATE SODIUM 100 MG CAPSULE PO SCH ×2 (09:00→21:00)
[2019-01-26] MEDS: ASPIRIN 81 MG EC TABLET PO SCH (11:11)
[2019-01-26] MEDS: LOSARTAN POTASSIUM 50 MG TABLET PO SCH (11:11)
[2019-01-26] MEDS: PANTOPRAZOLE SODIUM 40 MG DR TABLET PO SCH (11:12)
[2019-01-26 11:42] VITALS: BP 119/69
[2019-01-26] MEDS: ACETAMINOPHEN 325 MG TABLET PO PRN (13:26)
[2019-01-26 15:00] VITALS: BP 119/80
[2019-01-26] MEDS: LEVOFLOXACIN 750 MG/D5% WATER 150 ML IV SCH (16:54)
[2019-01-26 19:00] VITALS: BP 116/70
[2019-01-26] MEDS: HYDROCODONE/ACETAMINOPHEN 5-325 MG TABLET PO PRN (21:07)
[2019-01-26] MEDS: [UNRECOGNIZED DRUG - OTHER] IV SCH ×9 (22:20)
[2019-01-26] MEDS: SODIUM CHLORIDE IV SCH ×9 (22:20)
[2019-01-26] MEDS: PPN IV SCH ×9 (22:20)
[2019-01-26] MEDS: POTASSIUM CHLORIDE IV SCH ×9 (22:20)
[2019-01-27] VITALS (7 sets, daily range): BP systolic 93–115; BP diastolic 56–76
[2019-01-27] MEDS: ZOLPIDEM TARTRATE 5 MG TABLET PO PRN (02:35)
[2019-01-27 07:07] LABS: ANION GAP 5 mmol/L (8-16); CALCIUM, TOTAL 8.5 mg/dL (8.8-10.5); CARBON DIOXIDE 31 mmol/L (22-29); CHLORIDE 98 mmol/L (98-107); CREATININE 0.33 mg/dL (0.60-1.30); GLOMERULAR FILTR. RATE CALC > 60 mL/min (>60); GLUCOSE,RANDOM 119 mg/dL (70-110); PHOSPHORUS 3.3 mg/dL (2.5-4.9); POTASSIUM 4.2 mmol/L (3.5-5.1); SODIUM SERUM 134 mmol/L (136-145); UREA NITROGEN, BLOOD 13 mg/dL (7-18)
[2019-01-27] MEDS: MORPHINE SULFATE 2 MG/ML SYRINGE IVP PRN (07:58)
[2019-01-27] MEDS: PANTOPRAZOLE SODIUM 40 MG DR TABLET PO SCH (08:02)
[2019-01-27] MEDS: ASPIRIN 81 MG EC TABLET PO SCH (08:02)
[2019-01-27] MEDS: DOCUSATE SODIUM 100 MG CAPSULE PO SCH ×2 (08:03→20:43)
[2019-01-27] MEDS: LOSARTAN POTASSIUM 50 MG TABLET PO SCH (09:03)
[2019-01-27] MEDS: LEVOFLOXACIN 750 MG/D5% WATER 150 ML IV SCH (17:53)
[2019-01-27] MEDS: HYDROCODONE/ACETAMINOPHEN 5-325 MG TABLET PO PRN (17:56)
[2019-01-27] MEDS: PPN IV SCH ×9 (22:48)
[2019-01-27] MEDS: [UNRECOGNIZED DRUG - OTHER] IV SCH ×9 (22:48)
[2019-01-27] MEDS: SODIUM CHLORIDE IV SCH ×9 (22:48)
[2019-01-27] MEDS: POTASSIUM CHLORIDE IV SCH ×9 (22:48)
[2019-01-28] MEDS: HYDROCODONE/ACETAMINOPHEN 5-325 MG TABLET PO PRN ×3 (02:31→21:43)
[2019-01-28 04:20] VITALS: BP 100/64
[2019-01-28 08:11] VITALS: BP 113/65
[2019-01-28] MEDS: DOCUSATE SODIUM 100 MG CAPSULE PO SCH ×2 (08:53→20:03)
[2019-01-28] MEDS: PANTOPRAZOLE SODIUM 40 MG DR TABLET PO SCH (08:56)
[2019-01-28] MEDS: LOSARTAN POTASSIUM 50 MG TABLET PO SCH (08:56)
[2019-01-28] MEDS: ASPIRIN 81 MG EC TABLET PO SCH (08:56)
[2019-01-28 11:30] VITALS: BP 100/60
[2019-01-28 12:17] LABS: ANION GAP 7 mmol/L (8-16); CALCIUM, TOTAL 8.7 mg/dL (8.8-10.5); CARBON DIOXIDE 31 mmol/L (22-29); CHLORIDE 98 mmol/L (98-107); CREATININE 0.42 mg/dL (0.60-1.30); GLOMERULAR FILTR. RATE CALC > 60 mL/min (>60); GLUCOSE,RANDOM 115 mg/dL (70-110); PHOSPHORUS 4.1 mg/dL (2.5-4.9); POTASSIUM 4.7 mmol/L (3.5-5.1); SODIUM SERUM 136 mmol/L (136-145); UREA NITROGEN, BLOOD 17 mg/dL (7-18)
[2019-01-28 15:36] VITALS: BP 94/63
[2019-01-28] MEDS: LEVOFLOXACIN 750 MG/D5% WATER 150 ML IV SCH (17:59)
[2019-01-28 21:31] VITALS: BP 91/56
[2019-01-29] VITALS (7 sets, daily range): BP systolic 89–109; BP diastolic 54–64
[2019-01-29] MEDS: HYDROCODONE/ACETAMINOPHEN 5-325 MG TABLET PO PRN ×2 (02:06→20:12)
[2019-01-29 07:06] LABS: BASOPHILS % (AUTO) 0.8 % (0.0-2.0); EOSINOPHILS % (AUTO) 5.8 % (1.0-6.0); HEMATOCRIT 31.5 % (41-53); HEMOGLOBIN 10.3 g/dL (13.5-17.5); LYMPHOCYTES # (AUTO) 1.2 K/uL (1.0-4.8); LYMPHOCYTES % (AUTO) 12.3 % (22.0-44.0); MEAN CORPUSCULAR HGB CONC 32.6 G/dL (31.0-37.0); MEAN CORPUSCULAR VOLUME 95 fL (80-100); MONOCYTES # (AUTO) 0.7 K/uL (0.1-1.0); MONOCYTES % (AUTO) 6.9 % (2.0-9.0); NEUTROPHILS # (AUTO) 7.3 K/uL (1.8-7.7); NEUTROPHILS % (AUTO) 74.2 % (40.0-70.0); PLATELET COUNT (AUTO) 503 K/uL (150-450); RED BLOOD CELL COUNT(AUTO) 3.32 MIL/uL (4.50-5.90); RED CELL DISTRIBUTION WIDTH 17.5 % (11.5-14.5)
[2019-01-29 07:25] LABS: ANION GAP 3 mmol/L (8-16); CALCIUM, TOTAL 8.9 mg/dL (8.8-10.5); CARBON DIOXIDE 34 mmol/L (22-29); CHLORIDE 97 mmol/L (98-107); CREATININE 0.39 mg/dL (0.60-1.30); GLOMERULAR FILTR. RATE CALC > 60 mL/min (>60); GLUCOSE,RANDOM 103 mg/dL (70-110); PHOSPHORUS 4.3 mg/dL (2.5-4.9); POTASSIUM 4.5 mmol/L (3.5-5.1); SODIUM SERUM 134 mmol/L (136-145); UREA NITROGEN, BLOOD 15 mg/dL (7-18)
[2019-01-29] MEDS: LOSARTAN POTASSIUM 50 MG TABLET PO SCH (09:00)
[2019-01-29] MEDS: PANTOPRAZOLE SODIUM 40 MG DR TABLET PO SCH (10:09)
[2019-01-29] MEDS: DOCUSATE SODIUM 100 MG CAPSULE PO SCH ×2 (10:09→20:12)
[2019-01-29] MEDS: ASPIRIN 81 MG EC TABLET PO SCH (10:09)
[2019-01-29] MEDS: LEVOFLOXACIN 750 MG/D5% WATER 150 ML IV SCH (18:32)
[2019-01-30] MEDS: HYDROCODONE/ACETAMINOPHEN 5-325 MG TABLET PO PRN ×2 (00:35→15:23)
[2019-01-30 06:16] LABS: ANION GAP 2 mmol/L (8-16); CALCIUM, TOTAL 8.8 mg/dL (8.8-10.5); CARBON DIOXIDE 37 mmol/L (22-29); CHLORIDE 95 mmol/L (98-107); CREATININE 0.39 mg/dL (0.60-1.30); GLOMERULAR FILTR. RATE CALC > 60 mL/min (>60); GLUCOSE,RANDOM 110 mg/dL (70-110); PHOSPHORUS 4.3 mg/dL (2.5-4.9); POTASSIUM 4.1 mmol/L (3.5-5.1); SODIUM SERUM 134 mmol/L (136-145); UREA NITROGEN, BLOOD 16 mg/dL (7-18)
[2019-01-30] MEDS: LOSARTAN POTASSIUM 50 MG TABLET PO SCH (08:09)
[2019-01-30] MEDS: PANTOPRAZOLE SODIUM 40 MG DR TABLET PO SCH (08:09)
[2019-01-30] MEDS: ASPIRIN 81 MG EC TABLET PO SCH (08:10)
[2019-01-30] MEDS: DOCUSATE SODIUM 100 MG CAPSULE PO SCH ×2 (08:11→20:52)
[2019-01-30 08:26] VITALS: BP 100/60
[2019-01-30 12:13] VITALS: BP 95/64
[2019-01-30 15:52] VITALS: BP 95/53
[2019-01-30] MEDS: LEVOFLOXACIN 750 MG/D5% WATER 150 ML IV SCH (18:15)
[2019-01-30 19:40] VITALS: BP 98/61
[2019-01-31 00:08] VITALS: BP 95/56
[2019-01-31] MEDS: HYDROCODONE/ACETAMINOPHEN 5-325 MG TABLET PO PRN ×2 (00:35→06:02)
[2019-01-31 03:55] VITALS: BP 97/57
[2019-01-31 08:12] VITALS: BP 99/59
[2019-01-31] MEDS: ASPIRIN 81 MG EC TABLET PO SCH (08:43)
[2019-01-31] MEDS: PANTOPRAZOLE SODIUM 40 MG DR TABLET PO SCH (08:43)
[2019-01-31] MEDS: DOCUSATE SODIUM 100 MG CAPSULE PO SCH ×2 (08:45→20:07)
[2019-01-31] MEDS: LOSARTAN POTASSIUM 50 MG TABLET PO SCH (08:53)
[2019-01-31] MEDS: MORPHINE SULFATE 2 MG/ML SYRINGE IVP PRN (11:45)
[2019-01-31 12:03] VITALS: BP 129/83
[2019-01-31 15:59] VITALS: BP 112/76
[2019-01-31] MEDS: LEVOFLOXACIN 750 MG/D5% WATER 150 ML IV SCH (18:35)
[2019-01-31 19:42] VITALS: BP 121/76
[2019-02-01 03:52] VITALS: BP 126/74
[2019-02-01] MEDS: DOCUSATE SODIUM 100 MG CAPSULE PO SCH (08:09)
[2019-02-01] MEDS: PANTOPRAZOLE SODIUM 40 MG DR TABLET PO SCH (08:09)
[2019-02-01] MEDS: ASPIRIN 81 MG EC TABLET PO SCH (08:09)
[2019-02-01 08:13] VITALS: BP 112/70
[2019-02-01] MEDS: LOSARTAN POTASSIUM 50 MG TABLET PO SCH (09:26)
[2019-02-01 11:00] VITALS: BP 125/78
[2019-02-01] MEDS: HYDROCODONE/ACETAMINOPHEN 5-325 MG TABLET PO PRN (11:00)
[2019-02-01 15:58] VITALS: BP 123/72
[2019-02-01] MEDS: LEVOFLOXACIN 750 MG/D5% WATER 150 ML IV SCH (18:15)
[2019-02-01] MEDS ORDERED: LEVO750T21 PO (18:43)
[2019-02-01] MEDS ORDERED: PERCT10 PO (18:44)
[2019-02-01] MEDS ORDERED: SENN-176 PO (18:45)
[2019-02-01] MEDS ORDERED: DSS100 PO (18:45)
== END 2019-02-01 19:20 | disposition home or self-care (01) | DRG 854 ==
LOC: EMS 05:01 → 5N 11:20 → ICU 01-19 13:32 → 5N 01-22 06:25
PROVIDERS: ADMIT Internal Medicine; ATTEND Internal Medicine
PROC: 5A09357 Assistance with Respiratory Ventilation, Less than 24 Consecutive Hours, Continuous Positive Airway Pressure (ICD-10-PCS; 2019-01-04)
PROC: 5A09357 Assistance with Respiratory Ventilation, Less than 24 Consecutive Hours, Continuous Positive Airway Pressure (ICD-10-PCS; 2019-01-05)
PROC: 5A09357 Assistance with Respiratory Ventilation, Less than 24 Consecutive Hours, Continuous Positive Airway Pressure (ICD-10-PCS; 2019-01-06)
PROC: 5A09357 Assistance with Respiratory Ventilation, Less than 24 Consecutive Hours, Continuous Positive Airway Pressure (ICD-10-PCS; 2019-01-07)
PROC: 05HY33Z Insertion of Infusion Device into Upper Vein, Percutaneous Approach (ICD-10-PCS; 2019-01-08)
PROC: B54MZZA Ultrasonography of Right Upper Extremity Veins, Guidance (ICD-10-PCS; 2019-01-08)
PROC: 5A09357 Assistance with Respiratory Ventilation, Less than 24 Consecutive Hours, Continuous Positive Airway Pressure (ICD-10-PCS; 2019-01-08)
PROC: 5A09357 Assistance with Respiratory Ventilation, Less than 24 Consecutive Hours, Continuous Positive Airway Pressure (ICD-10-PCS; 2019-01-09)
PROC: 5A09357 Assistance with Respiratory Ventilation, Less than 24 Consecutive Hours, Continuous Positive Airway Pressure (ICD-10-PCS; 2019-01-10)
PROC: 5A09357 Assistance with Respiratory Ventilation, Less than 24 Consecutive Hours, Continuous Positive Airway Pressure (ICD-10-PCS; 2019-01-11)
PROC: 5A09357 Assistance with Respiratory Ventilation, Less than 24 Consecutive Hours, Continuous Positive Airway Pressure (ICD-10-PCS; 2019-01-12)
PROC: 5A09357 Assistance with Respiratory Ventilation, Less than 24 Consecutive Hours, Continuous Positive Airway Pressure (ICD-10-PCS; 2019-01-13)
PROC: 5A09357 Assistance with Respiratory Ventilation, Less than 24 Consecutive Hours, Continuous Positive Airway Pressure (ICD-10-PCS; 2019-01-14)
PROC: 5A09357 Assistance with Respiratory Ventilation, Less than 24 Consecutive Hours, Continuous Positive Airway Pressure (ICD-10-PCS; 2019-01-15)
PROC: 5A09357 Assistance with Respiratory Ventilation, Less than 24 Consecutive Hours, Continuous Positive Airway Pressure (ICD-10-PCS; 2019-01-16)
PROC: 5A09357 Assistance with Respiratory Ventilation, Less than 24 Consecutive Hours, Continuous Positive Airway Pressure (ICD-10-PCS; 2019-01-17)
PROC: 5A09357 Assistance with Respiratory Ventilation, Less than 24 Consecutive Hours, Continuous Positive Airway Pressure (ICD-10-PCS; 2019-01-18)
PROC: 0D1L0Z4 Bypass Transverse Colon to Cutaneous, Open Approach (ICD-10-PCS; 2019-01-19)
PROC: 0D9H0ZZ Drainage of Cecum, Open Approach (ICD-10-PCS; 2019-01-19)
PROC: 0DTJ0ZZ Resection of Appendix, Open Approach (ICD-10-PCS; 2019-01-19)
PROC: 3E0M05Z Introduction of Adhesion Barrier into Peritoneal Cavity, Open Approach (ICD-10-PCS; 2019-01-19)
PROC: 5A09357 Assistance with Respiratory Ventilation, Less than 24 Consecutive Hours, Continuous Positive Airway Pressure (ICD-10-PCS; 2019-01-19)
PROC: 0DBN0ZZ Excision of Sigmoid Colon, Open Approach (ICD-10-PCS; principal; 2019-01-19 13:00)
PROC: 5A09357 Assistance with Respiratory Ventilation, Less than 24 Consecutive Hours, Continuous Positive Airway Pressure (ICD-10-PCS; 2019-01-20)
PROC: 5A09357 Assistance with Respiratory Ventilation, Less than 24 Consecutive Hours, Continuous Positive Airway Pressure (ICD-10-PCS; 2019-01-21)
PROC: 5A09357 Assistance with Respiratory Ventilation, Less than 24 Consecutive Hours, Continuous Positive Airway Pressure (ICD-10-PCS; 2019-01-22)
PROC: 5A09357 Assistance with Respiratory Ventilation, Less than 24 Consecutive Hours, Continuous Positive Airway Pressure (ICD-10-PCS; 2019-01-23)
PROC: 5A09357 Assistance with Respiratory Ventilation, Less than 24 Consecutive Hours, Continuous Positive Airway Pressure (ICD-10-PCS; 2019-01-24)
PROC: 5A09357 Assistance with Respiratory Ventilation, Less than 24 Consecutive Hours, Continuous Positive Airway Pressure (ICD-10-PCS; 2019-01-25)
PROC: 5A09357 Assistance with Respiratory Ventilation, Less than 24 Consecutive Hours, Continuous Positive Airway Pressure (ICD-10-PCS; 2019-01-26)
PROC: 5A09357 Assistance with Respiratory Ventilation, Less than 24 Consecutive Hours, Continuous Positive Airway Pressure (ICD-10-PCS; 2019-01-27)
PROC: 5A09357 Assistance with Respiratory Ventilation, Less than 24 Consecutive Hours, Continuous Positive Airway Pressure (ICD-10-PCS; 2019-01-28)
PROC: 5A09357 Assistance with Respiratory Ventilation, Less than 24 Consecutive Hours, Continuous Positive Airway Pressure (ICD-10-PCS; 2019-01-29)
PROC: 5A09357 Assistance with Respiratory Ventilation, Less than 24 Consecutive Hours, Continuous Positive Airway Pressure (ICD-10-PCS; 2019-01-30)
PROC: 5A09357 Assistance with Respiratory Ventilation, Less than 24 Consecutive Hours, Continuous Positive Airway Pressure (ICD-10-PCS; 2019-01-31)
PROC: 5A09357 Assistance with Respiratory Ventilation, Less than 24 Consecutive Hours, Continuous Positive Airway Pressure (ICD-10-PCS; 2019-02-01)
DX: A41.9 Sepsis, unspecified organism (principal); K56.51 Intestinal adhesions [bands], with partial obstruction; K56.7 Ileus, unspecified; K57.32 Diverticulitis of large intestine without perforation or abscess without bleeding; N32.1 Vesicointestinal fistula; N13.6 Pyonephrosis; M46.24 Osteomyelitis of vertebra, thoracic region; B96.20 Unspecified Escherichia coli [E. coli] as the cause of diseases classified elsewhere; B96.89 Other specified bacterial agents as the cause of diseases classified elsewhere; E87.6 Hypokalemia; G47.33 Obstructive sleep apnea (adult) (pediatric); I10 Essential (primary) hypertension; Z87.891 Personal history of nicotine dependence; Z87.440 Personal history of urinary (tract) infections; R09.02 Hypoxemia; M48.04 Spinal stenosis, thoracic region; M46.44 Discitis, unspecified, thoracic region; M40.209 Unspecified kyphosis, site unspecified; M46.1 Sacroiliitis, not elsewhere classified; M25.78 Osteophyte, vertebrae; M12.80 Other specific arthropathies, not elsewhere classified, unspecified site; L29.9 Pruritus, unspecified; Z28.21 Immunization not carried out because of patient refusal
CPT/HCPCS: 36245; 36569; 36600; 72128; 72157; 72158; 74018; 74177; 76937; 82805; 83605; 83735; 84100; 84132; 84145; 85651; 86140; 86480; 87040; 87081; 87086; 87205; 87804; 88307; 90732; 93005; 94660; 96365; 96366; 97162; 97530; 99291; A9585; C9290; G0378; J0330; J0610; J0690; J0696; J0744; J1644; J1956; J2250; J2270; J2370; J2405; J2704; J3010; J3475; J3480; J3490; J7030; J7040; J7050; J7060; J7070; J7120; J7131; P9046

== ENCOUNTER 2019-08-25 21:26 | Emergency (ER) | payer OTHER ==
[~2019-08-25] VITALS: Ht 124.5 cm; Wt 59.1 kg
[~2019-08-25 21:26] MED LIST changes: +ASPI-1182 PO; -BP MEDS; +DSS100 PO; +LEVO750T21 PO; +LOSA50TA64 PO; +OXYC-601 PO; +SENN-176 PO
[2019-08-25] MEDS ORDERED: IPRATROPIUM BROMIDE 0.5 MG/2.5 ML NEB SOLUTION NEB ONE (22:49)
[2019-08-25] MEDS ORDERED: ALBUTEROL SULFATE 2.5 MG/0.5 ML NEB SOLUTION NEB ONE (22:49)
[2019-08-25] MEDS ORDERED: 0.9% SODIUM CHLORIDE 5 ML NEB SOLUTION NEB ONE (22:50)
[2019-08-25 22:52] LABS: BASOPHILS % (AUTO) 1.2 % (0.0-2.0); HEMATOCRIT 43.6 % (41-53); LYMPHOCYTES # (AUTO) 0.7 K/uL (1.0-4.8); LYMPHOCYTES % (AUTO) 11.7 % (22.0-44.0); MEAN CORPUSCULAR HEMOGLOBIN 34.4 pg (26.0-34.0); MEAN CORPUSCULAR HGB CONC 34.3 G/dL (31.0-37.0); MEAN CORPUSCULAR VOLUME 100 fL (80-100); MONOCYTES # (AUTO) 0.4 K/uL (0.1-1.0); MONOCYTES % (AUTO) 7.4 % (2.0-9.0); NEUTROPHILS # (AUTO) 4.4 K/uL (1.8-7.7); NEUTROPHILS % (AUTO) 74.7 % (40.0-70.0); PLATELET COUNT (AUTO) 207 K/uL (150-450); RED BLOOD CELL COUNT(AUTO) 4.34 MIL/uL (4.50-5.90); RED CELL DISTRIBUTION WIDTH 15.8 % (11.5-14.5)
[2019-08-25 23:01] LABS: ANION GAP 8 mmol/L (8-16); CALCIUM, TOTAL 8.7 mg/dL (8.8-10.5); CARBON DIOXIDE 28 mmol/L (22-29); CHLORIDE 100 mmol/L (98-107); GLOMERULAR FILTR. RATE CALC > 60 mL/min (>60); GLUCOSE,RANDOM 101 mg/dL (70-110); POTASSIUM 3.6 mmol/L (3.5-5.1); SODIUM SERUM 136 mmol/L (136-145); UREA NITROGEN, BLOOD 15 mg/dL (7-18)
[2019-08-25 23:07] LABS: ALANINE AMINOTRANSFERASE 28 U/L (12-78); ALBUMIN 3.9 g/dL (3.4-5.0); ALKALINE PHOSPHATASE 54 U/L (46-116); ASPARTATE AMINOTRANSFERASE 20 U/L (15-37); BILIRUBIN,TOTAL 0.6 mg/dL (0.1-1.0); TOTAL PROTEIN, SERUM 7.2 g/dL (6.4-8.2)
[2019-08-25 23:14] LABS: PLATELET MORPHOLOGY COMMENT NORMAL
[2019-08-25 23:22] LABS: INFLUENZA TYPE A NEGATIVE FOR TYPE A (NEGATIVE); INFLUENZA TYPE B NEGATIVE FOR TYPE B (NEGATIVE)
[2019-08-25] MEDS ORDERED: ALBUTEROL SULFATE HFA 90 MCG/PUFF 8 GM INHALER IH ONE (23:45)
[2019-08-26 00:30] VITALS: BP 121/77
== END 2019-08-26 01:00 | disposition home or self-care (01) ==
LOC: EMS 21:27
DX: J40 Bronchitis, not specified as acute or chronic (principal); I10 Essential (primary) hypertension; G47.00 Insomnia, unspecified; Z79.82 Long term (current) use of aspirin; Z79.899 Other long term (current) drug therapy
CPT/HCPCS: 87804; 94640; J3535

== ENCOUNTER 2021-03-11 16:45 | Inpatient (IN) | payer OTHER ==
[~2021-03-11] VITALS: Ht 124.5 cm; Wt 68.4 kg
[~2021-03-11 16:45] MED LIST changes: -ASPI-1182 PO; +ASPI-1444 PO; +BACL10TA PO; +DOCU-275 PO; -DSS100 PO; -LEVO750T21 PO; +LOSA50TA37 PO; -LOSA50TA64 PO; +MELO-106 PO; -SENN-176 PO; +SENN-277 PO
[2021-03-11 17:30] VITALS: BP 133/87
[2021-03-11] MEDS ORDERED: HYDROCODONE/ACETAMINOPHEN 5-325 MG TABLET PO PRN (17:45)
[2021-03-11] MEDS ORDERED: MELATONIN 5 MG TABLET PO PRN (17:45)
[2021-03-11] MEDS ORDERED: ACETAMINOPHEN 325 MG TABLET PO PRN ×2 (17:45)
[2021-03-11] MEDS ORDERED: ALBUTEROL SULFATE 2.5 MG/0.5 ML NEB SOLUTION NEB PRN (17:45)
[2021-03-11] MEDS: SENNA 187 MG TABLET PO SCH (20:40)
[2021-03-11] MEDS: BACLOFEN 10 MG TABLET PO SCH (20:41)
[2021-03-11] MEDS: PANTOPRAZOLE SODIUM 40 MG DR TABLET PO SCH (20:41)
[2021-03-11] MEDS: DOCUSATE SODIUM 100 MG CAPSULE PO SCH (20:41)
[2021-03-11] MEDS: DEXAMETHASONE 4 MG TABLET PO SCH (20:41)
[2021-03-11 21:02] VITALS: BP 125/84
[2021-03-12 00:06] VITALS: BP 136/77
[2021-03-12 07:22] LABS: BASOPHILS % (AUTO) 0.7 % (0.0-2.0); EOSINOPHILS % (AUTO) 0.1 % (1.0-6.0); HEMATOCRIT 42.6 % (41-53); HEMOGLOBIN 13.9 g/dL (13.5-17.5); LYMPHOCYTES % (AUTO) 16.3 % (22.0-44.0); MEAN CORPUSCULAR HEMOGLOBIN 32.9 pg (26.0-34.0); MEAN CORPUSCULAR HGB CONC 32.6 G/dL (31.0-37.0); MEAN CORPUSCULAR VOLUME 101 fL (80-100); MONOCYTES # (AUTO) 0.4 K/uL (0.1-1.0); MONOCYTES % (AUTO) 6.2 % (2.0-9.0); NEUTROPHILS # (AUTO) 4.8 K/uL (1.8-7.7); NEUTROPHILS % (AUTO) 76.7 % (40.0-70.0); PLATELET COUNT (AUTO) 215 K/uL (150-450); RED BLOOD CELL COUNT(AUTO) 4.23 MIL/uL (4.50-5.90); RED CELL DISTRIBUTION WIDTH 15.6 % (11.5-14.5)
[2021-03-12 07:34] LABS: ALANINE AMINOTRANSFERASE 57 U/L (12-78); ALBUMIN 3.4 g/dL (3.4-5.0); ALKALINE PHOSPHATASE 56 U/L (46-116); ANION GAP 6 mmol/L (8-16); ASPARTATE AMINOTRANSFERASE 15 U/L (15-37); BILIRUBIN,TOTAL 0.3 mg/dL (0.1-1.0); CALCIUM, TOTAL 8.7 mg/dL (8.8-10.5); CARBON DIOXIDE 35 mmol/L (22-29); CHLORIDE 99 mmol/L (98-107); CREATININE 0.35 mg/dL (0.60-1.30); GLOMERULAR FILTR. RATE CALC > 60 mL/min (>60); GLUCOSE,RANDOM 130 mg/dL (70-110); POTASSIUM 4.2 mmol/L (3.5-5.1); SODIUM SERUM 140 mmol/L (136-145); TOTAL PROTEIN, SERUM 6.9 g/dL (6.4-8.2); UREA NITROGEN, BLOOD 18 mg/dL (7-18)
[2021-03-12 08:01] VITALS: BP 140/92
[2021-03-12 08:14] LABS: PLATELET MORPHOLOGY COMMENT GIANT PLTS PRESENT
[2021-03-12] MEDS: DEXAMETHASONE 4 MG TABLET PO SCH ×2 (08:19→20:46)
[2021-03-12] MEDS: DOCUSATE SODIUM 100 MG CAPSULE PO SCH ×2 (08:19→20:46)
[2021-03-12] MEDS: BACLOFEN 10 MG TABLET PO SCH ×3 (08:20→20:46)
[2021-03-12] MEDS: LOSARTAN POTASSIUM 50 MG TABLET PO SCH (08:20)
[2021-03-12 17:42] VITALS: BP 117/67
[2021-03-12] MEDS: SENNA 187 MG TABLET PO SCH (20:46)
[2021-03-12] MEDS: PANTOPRAZOLE SODIUM 40 MG DR TABLET PO SCH (20:46)
[2021-03-12 23:39] VITALS: BP 99/69
[2021-03-13 08:20] VITALS: BP 127/72
[2021-03-13] MEDS: DOCUSATE SODIUM 100 MG CAPSULE PO SCH ×2 (08:33→20:23)
[2021-03-13] MEDS: LOSARTAN POTASSIUM 50 MG TABLET PO SCH (08:33)
[2021-03-13] MEDS: DEXAMETHASONE 4 MG TABLET PO SCH ×2 (08:34→20:23)
[2021-03-13] MEDS: BACLOFEN 10 MG TABLET PO SCH ×3 (08:34→20:24)
[2021-03-13 16:51] VITALS: BP 127/73
[2021-03-13] MEDS: PANTOPRAZOLE SODIUM 40 MG DR TABLET PO SCH (20:23)
[2021-03-13] MEDS: SENNA 187 MG TABLET PO SCH (20:23)
[2021-03-14 05:20] VITALS: BP 132/82
[2021-03-14 09:10] VITALS: BP 130/68
[2021-03-14] MEDS: DOCUSATE SODIUM 100 MG CAPSULE PO SCH ×2 (09:48→21:00)
[2021-03-14] MEDS: BACLOFEN 10 MG TABLET PO SCH ×3 (09:48→21:04)
[2021-03-14] MEDS: LOSARTAN POTASSIUM 50 MG TABLET PO SCH (09:48)
[2021-03-14] MEDS: DEXAMETHASONE 4 MG TABLET PO SCH ×2 (09:48→21:01)
[2021-03-14] MEDS ORDERED: 0.9% SODIUM CHLORIDE 5 ML NEB SOLUTION NEB ONE (12:49)
[2021-03-14 13:30] VITALS: BP 103/60
[2021-03-14 16:00] VITALS: BP 94/59
[2021-03-14] MEDS: SENNA 187 MG TABLET PO SCH (21:00)
[2021-03-14] MEDS: PANTOPRAZOLE SODIUM 40 MG DR TABLET PO SCH (21:00)
[2021-03-14 23:53] VITALS: BP 129/65
[2021-03-15 08:00] VITALS: BP 112/64
[2021-03-15] MEDS: DOCUSATE SODIUM 100 MG CAPSULE PO SCH ×2 (09:29→21:28)
[2021-03-15] MEDS: LOSARTAN POTASSIUM 50 MG TABLET PO SCH (09:30)
[2021-03-15] MEDS: DEXAMETHASONE 4 MG TABLET PO SCH ×2 (09:30→21:30)
[2021-03-15] MEDS: BACLOFEN 10 MG TABLET PO SCH ×3 (09:34→21:28)
[2021-03-15 09:49] LABS: BASOPHILS % (AUTO) 0.3 % (0.0-2.0); EOSINOPHILS % (AUTO) 0 % (1.0-6.0); HEMATOCRIT 43.9 % (41-53); HEMOGLOBIN 13.9 g/dL (13.5-17.5); LYMPHOCYTES # (AUTO) 1.4 K/uL (1.0-4.8); LYMPHOCYTES % (AUTO) 7.6 % (22.0-44.0); MEAN CORPUSCULAR HEMOGLOBIN 32.3 pg (26.0-34.0); MEAN CORPUSCULAR HGB CONC 31.7 G/dL (31.0-37.0); MEAN CORPUSCULAR VOLUME 102 fL (80-100); MONOCYTES # (AUTO) 1.1 K/uL (0.1-1.0); MONOCYTES % (AUTO) 5.9 % (2.0-9.0); PLATELET COUNT (AUTO) 255 K/uL (150-450); RED BLOOD CELL COUNT(AUTO) 4.31 MIL/uL (4.50-5.90); RED CELL DISTRIBUTION WIDTH 15.8 % (11.5-14.5)
[2021-03-15 09:59] LABS: NEUTROPHILS % (AUTO) 86.2 % (40.0-70.0)
[2021-03-15 15:58] VITALS: BP 97/50
[2021-03-15] MEDS: PANTOPRAZOLE SODIUM 40 MG DR TABLET PO SCH (21:28)
[2021-03-15] MEDS: SENNA 187 MG TABLET PO SCH (21:28)
[2021-03-16] VITALS: BP 99/57
[2021-03-16 03:11] LABS: APPEARANCE,URINE CLEAR (CLEAR); BILIRUBIN,URINE NEGATIVE (NEGATIVE); GLUCOSE, URINE (UA) NEGATIVE (NEGATIVE); KETONES,URINE NEGATIVE (NEGATIVE); LEUKOCYTE ESTERASE ,URINE NEGATIVE (NEGATIVE); NITRATE,URINE POSITIVE (NEGATIVE); OCCULT BLOOD,URINE LARGE (NEGATIVE); PROTEIN,URINE NEGATIVE (NEGATIVE); UROBILINOGEN,URINE 0.2 mg/dL (<=1.0)
[2021-03-16 03:16] LABS: BACTERIA,URINE Moderate /HPF (None Seen); SQUAMOUS EPITHELIAL CELL,UR Rare /LPF (None Seen)
[2021-03-16 07:25] LABS: BASOPHILS % (AUTO) 0.5 % (0.0-2.0); EOSINOPHILS % (AUTO) 0 % (1.0-6.0); HEMATOCRIT 41.1 % (41-53); HEMOGLOBIN 13.2 g/dL (13.5-17.5); LYMPHOCYTES # (AUTO) 0.8 K/uL (1.0-4.8); LYMPHOCYTES % (AUTO) 6.5 % (22.0-44.0); MEAN CORPUSCULAR HEMOGLOBIN 32.7 pg (26.0-34.0); MEAN CORPUSCULAR HGB CONC 32.2 G/dL (31.0-37.0); MEAN CORPUSCULAR VOLUME 102 fL (80-100); MONOCYTES # (AUTO) 0.6 K/uL (0.1-1.0); MONOCYTES % (AUTO) 4.7 % (2.0-9.0); NEUTROPHILS # (AUTO) 10.9 K/uL (1.8-7.7); PLATELET COUNT (AUTO) 245 K/uL (150-450); RED BLOOD CELL COUNT(AUTO) 4.04 MIL/uL (4.50-5.90); RED CELL DISTRIBUTION WIDTH 15.7 % (11.5-14.5)
[2021-03-16 07:30] LABS: NEUTROPHILS % (AUTO) 88.3 % (40.0-70.0)
[2021-03-16] MEDS: DOCUSATE SODIUM 100 MG CAPSULE PO SCH ×2 (08:31→21:04)
[2021-03-16] MEDS: DEXAMETHASONE 4 MG TABLET PO SCH ×2 (08:32→21:04)
[2021-03-16] MEDS: BACLOFEN 10 MG TABLET PO SCH ×3 (08:32→21:04)
[2021-03-16 09:10] VITALS: BP 120/66
[2021-03-16] MEDS: LOSARTAN POTASSIUM 50 MG TABLET PO SCH (09:20)
[2021-03-16 16:00] VITALS: BP 106/61
[2021-03-16] MEDS: SENNA 187 MG TABLET PO SCH (21:04)
[2021-03-16] MEDS: PANTOPRAZOLE SODIUM 40 MG DR TABLET PO SCH (21:04)
[2021-03-17] VITALS: BP 115/70
[2021-03-17] MEDS: DOCUSATE SODIUM 100 MG CAPSULE PO SCH ×2 (09:14→20:10)
[2021-03-17] MEDS: DEXAMETHASONE 4 MG TABLET PO SCH ×2 (09:14→20:10)
[2021-03-17] MEDS: LOSARTAN POTASSIUM 50 MG TABLET PO SCH (09:14)
[2021-03-17] MEDS: BACLOFEN 10 MG TABLET PO SCH ×3 (09:14→20:09)
[2021-03-17 09:55] VITALS: BP 125/75
[2021-03-17] MEDS: ALBUTEROL SULFATE 2.5 MG/0.5 ML NEB SOLUTION NEB SCH ×4 (11:32→23:19)
[2021-03-17] MEDS: IPRATROPIUM BROMIDE 0.5 MG/2.5 ML NEB SOLUTION NEB SCH ×4 (11:32→23:19)
[2021-03-17 15:25] VITALS: BP 126/68
[2021-03-17] MEDS: PANTOPRAZOLE SODIUM 40 MG DR TABLET PO SCH (20:10)
[2021-03-17] MEDS: SENNA 187 MG TABLET PO SCH (20:10)
[2021-03-18] MEDS: IPRATROPIUM BROMIDE 0.5 MG/2.5 ML NEB SOLUTION NEB SCH ×6 (02:32→23:01)
[2021-03-18] MEDS: ALBUTEROL SULFATE 2.5 MG/0.5 ML NEB SOLUTION NEB SCH ×6 (02:32→23:01)
[2021-03-18 05:00] VITALS: BP 131/86
[2021-03-18] MEDS ORDERED: 0.9% SODIUM CHLORIDE 5 ML NEB SOLUTION NEB ONE (08:45)
[2021-03-18] MEDS: LOSARTAN POTASSIUM 50 MG TABLET PO SCH (09:09)
[2021-03-18] MEDS: DOCUSATE SODIUM 100 MG CAPSULE PO SCH ×2 (09:09→19:54)
[2021-03-18] MEDS: DEXAMETHASONE 4 MG TABLET PO SCH ×2 (09:10→19:55)
[2021-03-18] MEDS: BACLOFEN 10 MG TABLET PO SCH ×3 (09:10→19:54)
[2021-03-18 12:03] VITALS: BP 147/79
[2021-03-18] MEDS: AMOX TR/POT CLAV 500 MG/125 MG TABLET PO SCH ×2 (13:22→19:54)
[2021-03-18 16:00] VITALS: BP 115/67
[2021-03-18] MEDS: PANTOPRAZOLE SODIUM 40 MG DR TABLET PO SCH (19:55)
[2021-03-18] MEDS: SENNA 187 MG TABLET PO SCH (19:55)
[2021-03-19] VITALS: BP 118/71
[2021-03-19] MEDS: IPRATROPIUM BROMIDE 0.5 MG/2.5 ML NEB SOLUTION NEB SCH ×8 (02:32→23:12)
[2021-03-19] MEDS: ALBUTEROL SULFATE 2.5 MG/0.5 ML NEB SOLUTION NEB SCH ×8 (02:32→23:12)
[2021-03-19 08:23] VITALS: BP 114/68
[2021-03-19] MEDS: AMOX TR/POT CLAV 500 MG/125 MG TABLET PO SCH ×2 (08:55→20:44)
[2021-03-19] MEDS: DEXAMETHASONE 4 MG TABLET PO SCH (08:56)
[2021-03-19] MEDS: BACLOFEN 10 MG TABLET PO SCH ×3 (08:56→20:44)
[2021-03-19] MEDS: DOCUSATE SODIUM 100 MG CAPSULE PO SCH ×3 (08:56→20:44)
[2021-03-19] MEDS: LOSARTAN POTASSIUM 50 MG TABLET PO SCH (08:56)
[2021-03-19 16:36] VITALS: BP 114/74
[2021-03-19] MEDS: SENNA 187 MG TABLET PO SCH (20:44)
[2021-03-19] MEDS: PANTOPRAZOLE SODIUM 40 MG DR TABLET PO SCH (20:44)
[2021-03-19] MEDS: DEXAMETHASONE 1 MG TABLET PO SCH (20:45)
[2021-03-20 00:09] VITALS: BP 120/70
[2021-03-20] MEDS: IPRATROPIUM BROMIDE 0.5 MG/2.5 ML NEB SOLUTION NEB SCH ×6 (02:35→23:29)
[2021-03-20] MEDS: ALBUTEROL SULFATE 2.5 MG/0.5 ML NEB SOLUTION NEB SCH ×6 (02:35→23:29)
[2021-03-20] MEDS: DEXAMETHASONE 1 MG TABLET PO SCH ×2 (08:46→21:15)
[2021-03-20] MEDS: AMOX TR/POT CLAV 500 MG/125 MG TABLET PO SCH ×2 (08:46→21:15)
[2021-03-20] MEDS: DOCUSATE SODIUM 100 MG CAPSULE PO SCH ×2 (08:46→21:15)
[2021-03-20] MEDS: LOSARTAN POTASSIUM 50 MG TABLET PO SCH (08:47)
[2021-03-20] MEDS: BACLOFEN 10 MG TABLET PO SCH ×3 (08:47→21:15)
[2021-03-20 08:58] VITALS: BP 137/81
[2021-03-20 15:56] VITALS: BP 111/73
[2021-03-20] MEDS: PANTOPRAZOLE SODIUM 40 MG DR TABLET PO SCH (21:15)
[2021-03-20] MEDS: SENNA 187 MG TABLET PO SCH (21:15)
[2021-03-21] VITALS: BP 116/74
[2021-03-21] MEDS: ALBUTEROL SULFATE 2.5 MG/0.5 ML NEB SOLUTION NEB SCH ×6 (03:28→23:44)
[2021-03-21] MEDS: IPRATROPIUM BROMIDE 0.5 MG/2.5 ML NEB SOLUTION NEB SCH ×6 (03:28→23:44)
[2021-03-21] MEDS ORDERED: PANT-31 PO (07:47)
[2021-03-21] MEDS ORDERED: AUD NEB (07:49)
[2021-03-21 08:15] VITALS: BP 106/77
[2021-03-21] MEDS: BACLOFEN 10 MG TABLET PO SCH ×3 (09:10→20:26)
[2021-03-21] MEDS: DEXAMETHASONE 1 MG TABLET PO SCH (09:10)
[2021-03-21] MEDS: AMOX TR/POT CLAV 500 MG/125 MG TABLET PO SCH ×2 (09:10→20:25)
[2021-03-21] MEDS: LOSARTAN POTASSIUM 50 MG TABLET PO SCH (09:11)
[2021-03-21] MEDS: DOCUSATE SODIUM 100 MG CAPSULE PO SCH ×2 (09:11→20:26)
[2021-03-21 17:10] VITALS: BP 121/70
[2021-03-21] MEDS: SENNA 187 MG TABLET PO SCH (20:26)
[2021-03-21] MEDS: PANTOPRAZOLE SODIUM 40 MG DR TABLET PO SCH (20:26)
[2021-03-22 01:02] VITALS: BP 107/60
[2021-03-22] MEDS: ALBUTEROL SULFATE 2.5 MG/0.5 ML NEB SOLUTION NEB SCH ×6 (03:24→23:04)
[2021-03-22] MEDS: IPRATROPIUM BROMIDE 0.5 MG/2.5 ML NEB SOLUTION NEB SCH ×6 (03:24→23:04)
[2021-03-22] MEDS: DEXAMETHASONE 2 MG TABLET PO SCH ×2 (09:40→20:34)
[2021-03-22] MEDS: AMOX TR/POT CLAV 500 MG/125 MG TABLET PO SCH ×2 (09:40→20:34)
[2021-03-22] MEDS: DOCUSATE SODIUM 100 MG CAPSULE PO SCH ×2 (09:40→20:35)
[2021-03-22] MEDS: BACLOFEN 10 MG TABLET PO SCH ×3 (09:41→20:35)
[2021-03-22] MEDS: LOSARTAN POTASSIUM 50 MG TABLET PO SCH (10:00)
[2021-03-22 13:14] VITALS: BP 99/58
[2021-03-22 17:15] VITALS: BP 97/49
[2021-03-22] MEDS: SENNA 187 MG TABLET PO SCH (20:34)
[2021-03-22] MEDS: PANTOPRAZOLE SODIUM 40 MG DR TABLET PO SCH (20:34)
[2021-03-22 23:26] VITALS: BP 102/51
[2021-03-23] MEDS: ALBUTEROL SULFATE 2.5 MG/0.5 ML NEB SOLUTION NEB SCH ×6 (03:13→23:50)
[2021-03-23] MEDS: IPRATROPIUM BROMIDE 0.5 MG/2.5 ML NEB SOLUTION NEB SCH ×6 (03:13→23:50)
[2021-03-23] MEDS: DEXAMETHASONE 2 MG TABLET PO SCH ×2 (08:49→21:06)
[2021-03-23] MEDS: DOCUSATE SODIUM 100 MG CAPSULE PO SCH ×2 (08:49→21:06)
[2021-03-23] MEDS: AMOX TR/POT CLAV 500 MG/125 MG TABLET PO SCH ×2 (08:49→21:06)
[2021-03-23] MEDS: LOSARTAN POTASSIUM 50 MG TABLET PO SCH (08:49)
[2021-03-23] MEDS: BACLOFEN 10 MG TABLET PO SCH ×3 (08:50→21:07)
[2021-03-23 09:20] VITALS: BP 118/75
[2021-03-23] MEDS: SENNA 187 MG TABLET PO SCH (21:06)
[2021-03-23] MEDS: PANTOPRAZOLE SODIUM 40 MG DR TABLET PO SCH (21:06)
[2021-03-24 01:15] VITALS: BP 95/59
[2021-03-24] MEDS: IPRATROPIUM BROMIDE 0.5 MG/2.5 ML NEB SOLUTION NEB SCH ×3 (02:50→12:43)
[2021-03-24] MEDS: ALBUTEROL SULFATE 2.5 MG/0.5 ML NEB SOLUTION NEB SCH ×3 (02:51→12:43)
[2021-03-24 08:00] VITALS: BP 112/62
[2021-03-24] MEDS: BACLOFEN 10 MG TABLET PO SCH (08:57)
[2021-03-24] MEDS: DOCUSATE SODIUM 100 MG CAPSULE PO SCH (08:57)
[2021-03-24] MEDS: LOSARTAN POTASSIUM 50 MG TABLET PO SCH (08:58)
[2021-03-24] MEDS: DEXAMETHASONE 2 MG TABLET PO SCH (08:58)
[2021-03-24] MEDS: AMOX TR/POT CLAV 500 MG/125 MG TABLET PO SCH (08:59)
[2021-03-24 09:07] LABS: BASOPHILS % (AUTO) 0.9 % (0.0-2.0); EOSINOPHILS % (AUTO) 0.5 % (1.0-6.0); HEMATOCRIT 41.7 % (41-53); HEMOGLOBIN 13.7 g/dL (13.5-17.5); LYMPHOCYTES # (AUTO) 1.3 K/uL (1.0-4.8); LYMPHOCYTES % (AUTO) 20.2 % (22.0-44.0); MEAN CORPUSCULAR HEMOGLOBIN 33.1 pg (26.0-34.0); MEAN CORPUSCULAR HGB CONC 32.9 G/dL (31.0-37.0); MEAN CORPUSCULAR VOLUME 101 fL (80-100); MONOCYTES # (AUTO) 0.4 K/uL (0.1-1.0); MONOCYTES % (AUTO) 5.4 % (2.0-9.0); NEUTROPHILS # (AUTO) 4.8 K/uL (1.8-7.7); PLATELET COUNT (AUTO) 324 K/uL (150-450); RED BLOOD CELL COUNT(AUTO) 4.14 MIL/uL (4.50-5.90); RED CELL DISTRIBUTION WIDTH 15.2 % (11.5-14.5)
[2021-03-24 09:16] LABS: ANION GAP -3 mmol/L (8-16); CALCIUM, TOTAL 8.4 mg/dL (8.8-10.5); CARBON DIOXIDE 37 mmol/L (22-29); CHLORIDE 98 mmol/L (98-107); CREATININE 0.27 mg/dL (0.60-1.30); GLOMERULAR FILTR. RATE CALC > 60 mL/min (>60); GLUCOSE,RANDOM 106 mg/dL (70-110); POTASSIUM 4.4 mmol/L (3.5-5.1); SODIUM SERUM 132 mmol/L (136-145); UREA NITROGEN, BLOOD 17 mg/dL (7-18)
[2021-03-24] MEDS ORDERED: [UNRECOGNIZED DRUG - CODE] PO (10:46)
[2021-03-24] MEDS ORDERED: AMOX TR/POT CLAV 500 MG/125 MG TABLET PO SCH (11:45)
[2021-03-24] MEDS ORDERED: ASPI-1444 PO (12:03)
[2021-03-24] MEDS ORDERED: DEXAMETHASONE 1 MG TABLET PO SCH (21:00)
== END 2021-03-24 14:10 | disposition home health service (06) | DRG 58 ==
LOC: 2WR 17:20
PROVIDERS: ADMIT Physical Medicine & Rehabilitation; ATTEND Physical Medicine & Rehabilitation
DX: G81.91 Hemiplegia, unspecified affecting right dominant side (principal); I61.8 Other nontraumatic intracerebral hemorrhage; I11.0 Hypertensive heart disease with heart failure; I50.9 Heart failure, unspecified; R13.10 Dysphagia, unspecified; R47.1 Dysarthria and anarthria; G47.33 Obstructive sleep apnea (adult) (pediatric); J44.9 Chronic obstructive pulmonary disease, unspecified; N39.0 Urinary tract infection, site not specified; Z79.899 Other long term (current) drug therapy; Z90.49 Acquired absence of other specified parts of digestive tract; Z93.3 Colostomy status; R73.9 Hyperglycemia, unspecified
CPT/HCPCS: 71045; 80048; 80053; 81001; 83036; 85025; 87077; 87081; 87086; 87186; 92507; 92523; 92526; 93970; 94640; 94660; 97110; 97112; 97163; 97167; 97530; 97535; 99366; J8540; 36415-L1; 36415-TC; J7613